=== PATIENT | male | born 1960 | race Caucasian/White ===

== ENCOUNTER 2016-11-14 13:25 | Inpatient (IN) | payer OTHER ==
[~2016-11-14] VITALS: Ht 175.3 cm; Wt 78.1 kg
[~2016-11-14 13:25] MED LIST: UNABLE
[2016-11-14 13:29] VITALS: Ht 175.3 cm; Wt 78.1 kg
[2016-11-14 14:48] LABS: BASO % 0.1 %; BASO ABS # 0.02 K/uL (0-0.2); COMPLETE YES; EOS % 0.3 %; HEMATOCRIT 45.1 % (42-52); IG% 0.3 %; LYMPH % 5.4 %; LYMPH ABS # 0.99 K/uL (1.2-3.4); MEAN CELL VOLUME 87.7 fL (80-100); MEAN CORPUSCULAR HEMOGLOBIN 31.1 pg (25-34); MEAN CORPUSCULAR HGB CONC 35.5 g/dl (32-36); MEAN PLATELET VOLUME 9.6 fL (7.4-10.4); NEUT % 83.9 %; PLATELET COUNT 269 K/uL (130-400); RED BLOOD COUNT 5.14 M/uL (4.7-6.1); WHITE BLOOD COUNT 18.19 K/uL (4.8-10.8)
[2016-11-14 15:08] LABS: ALB/GLOB RATIO 0.9 (0.9-2); BUN/CREATININE RATIO 15.2 (10-20); CALCIUM 8.8 mg/dl (8.5-10.1); POTASSIUM 3.8 mmol/L (3.5-5.1)
--- NOTE | 2016-11-14 15:13 | DIAGNOSTIC IMAGING REPORT ---
CHEST ONE VIEW PORTABLE CLINICAL HISTORY: weakness dyspnea COMPARISON STUDY: No previous studies for comparison. FINDINGS: The bones soft tissues and hemidiaphragms are normal. The cardiomediastinal silhouette is normal. The lungs are clear. The pulmonary vasculature is normal. IMPRESSION: Negative chest. Electronically signed by: Eduardo Lucio M.D. 11/14/2016 3:12 PM Dictated Date/Time: 11/14/2016 3:11 PM
[2016-11-14 15:16] LABS: THYROID STIMULATING HORMONE 1.48 uIu/ml (0.300-4.500)
--- NOTE | 2016-11-14 15:24 | DIAGNOSTIC IMAGING REPORT ---
CT OF THE CERVICAL SPINE CLINICAL HISTORY: Neck pain status post trauma COMPARISON STUDY: No previous studies for comparison. CT DOSE: TECHNIQUE: CT scan of the cervical spine was performed from the skull base to the thoracic inlet. Images are reviewed in the axial, sagittal, and coronal planes. IV contrast was not administered for this examination. FINDINGS: The visualized portions of the lung apices reveal no evidence of pneumothorax. The prevertebral soft tissues are normal. No fractures or subluxations are visualized. There are multilevel degenerative changes. There is straightening of the normal cervical lordosis. There are disc osteophyte complexes at the C4-5 and C5-6 and C6-7 levels. There is poor dentition with multiple dental caries. . IMPRESSION: No evidence of acute fracture or traumatic subluxation. Electronically signed by: Don Estrada M.D. 11/14/2016 3:23 PM Dictated Date/Time: 11/14/2016 3:21 PM
--- NOTE | 2016-11-14 15:24 | DIAGNOSTIC IMAGING REPORT ---
HEAD CT NONCONTRAST CT DOSE: 1004.92 mGy.cm HISTORY: Trauma fall, weakness TECHNIQUE: Multiaxial CT images of the head were performed without the use of intravenous contrast. Comparison: None. Findings: The paranasal sinuses and mastoid air cells are clear. The calvarium and skull base are intact. The ventricles and sulci are within normal limits. There is no mass, hematoma, midline shift, or acute infarct. Impression: No acute intracranial abnormality. Electronically signed by: Eduardo Lucio M.D. 11/14/2016 3:22 PM Dictated Date/Time: 11/14/2016 3:22 PM
[2016-11-14] MEDS ORDERED: SODIUM CHLORIDE 0.9% 1000ML 1,000 ML IV STA ×2 (15:52→20:17)
[2016-11-14 18:24] LABS: URINE APPEARANCE CLEAR (CLEAR); URINE BILIRUBIN NEG (NEG); URINE COLOR YELLOW; URINE NITRITE NEG (NEG); URINE SPECIFIC GRAVITY 1.002 (1.000-1.030); UROBILINOGEN NEG (NEG)
[2016-11-14 18:29] LABS: MANUAL MICROSCOPIC REQUIRED? NO; REVIEW REQ? NO
[2016-11-14 19:24] LABS: BENZODIAZEPINE, URINE NEG (NEG); COCAINE,URINE NEG (NEG); PHENCYCLIDINE, URINE NEG (NEG)
--- NOTE | 2016-11-14 19:24 | DIAGNOSTIC IMAGING REPORT ---
CT OF THE ABDOMEN AND PELVIS WITHOUT CONTRAST CLINICAL HISTORY: Inguinal/scrotal swelling. COMPARISON STUDY: Renal ultrasound November 07, 2009. TECHNIQUE: Axial images of the abdomen and pelvis were obtained without IV contrast. Images were reviewed in the axial, sagittal, and coronal planes. FINDINGS: Visualized portions of the lower chest demonstrate suspected right-sided gynecomastia which is suboptimally assessed by CT. There is a small hiatal hernia. Evaluation of the abdomen and pelvis is suboptimal on this unenhanced exam. Unenhanced images of the liver, spleen, adrenal glands, kidneys and pancreas are unremarkable. There calcite lesions within the spleen and pancreas. There is no hydronephrosis. There are small fat-containing ventral hernias. There is colonic diverticulosis without evidence for acute diverticulitis. A large amount stool is noted within the rectum. There is no evidence for a bowel obstruction. There is no lymphadenopathy. Note is made of a large water attenuation scrotal ovoid abnormality that measures 13 x 6 x 8 cm. No suspicious skeletal abnormalities are present. IMPRESSION: 1. Large water attenuation scrotal abnormality that measures approximately 13 x 6 x 8 cm. This is suboptimally assessed on this unenhanced CT but may reflect a large spermatocele, hydrocele or epididymal head cyst. This can be assessed with ultrasound. 2. Large amount stool within the rectum. No bowel obstruction. Electronically signed by: Thein Kennedy M.D. 11/14/2016 7:23 PM Dictated Date/Time: 11/14/2016 7:15 PM
--- NOTE | 2016-11-14 20:08 | DIAGNOSTIC IMAGING REPORT ---
SCROTAL ULTRASOUND CLINICAL HISTORY: Scrotal swelling. COMPARISON STUDY: CT of the abdomen and pelvis performed earlier today.. TECHNIQUE: Grayscale and color and duplex Doppler sonography of the scrotum was performed. FINDINGS: Note is made of a large hypoechoic abnormality which contains debris or low level echoes within the right hemiscrotum. This corresponds to the abnormality shown on prior CT. Measurements are difficult to obtain by sonography but this measures approximately 13 cm in maximal dimension. The right testis measures 5.3 x 3.1 x 2.3 cm and the left measures 4.2 x 2.4 x 3.2 cm. There is no testicular mass. Color flow is identified within each testis. A normal right epididymis was not visualized. IMPRESSION: 1. 13 cm fluid-filled structure within the right hemiscrotum which corresponds to the abnormality on prior CT. This contains debris or low level echoes. This likely reflects a large spermatocele. An epididymal head cyst or loculated hydrocele could appear similar. 2. Unremarkable sonographic appearance of the testes. Electronically signed by: Thien Kennedy M.D. 11/14/2016 8:07 PM Dictated Date/Time: 11/14/2016 8:04 PM
--- NOTE | 2016-11-14 21:06 | EMERGENCY ROOM VISIT NOTE ---
History Report prepared by Michael: Radha Fuentes Under the Supervision of: Dr. Cheryl Hinton D.O. First contact with patient: 13:33 Chief Complaint: MENTAL HEALTH EVALUATION Stated Complaint: MR History of Present Illness The patient is a 56 year old male who presents to the Emergency Room with complaints of persistent mental health issues starting 1 week ago. The patient was released from retirement 1 week ago. The patient's father reports that the patient has been in and out of retirement most of his life. He is a chronic drug abuser. He has a history of depression and a family history of mental health issues in his mother. He has tried to intentionally overdose several times. He has a history of hepatitis C. Recently the patient has been withdrawn. He is not like himself according to his father. He answers questions, but does not converse. He has bowel movement and urinates in his clothes. He does not make an effort to take care of himself. He mostly lies on the couch and goes to bed to sleep. He had a psychiatric evaluated this morning and was referred to the ED. He has not ever harmed others, only himself. He was on medications previously, but is not on any medications anymore. The father is unsure which medications he was on. The patient reports he is feeling OK. He has been shaking for the past few days. He has never experienced this shaking before and is unsure why he is shaking. He denies any chills or feeling nervous. He did not shake prior to being released from retirement. He fell at home after tripping on something 3 days ago. He denies hitting his head. He states that he cannot shower or take care of himself because he is too weak. He is able to walk and denies any unsteadiness when he walks. He denies any recent illnesses. He denies any abdominal pain, chest pain, headaches, swelling in the abdomen or legs, SOB, nausea, diarrhea, urinary symptoms, cough, or fever. He has been eating and drinking normally. He has not had any alcohol in 5 years. He denies any drug use. He has a history of hypertension, but is not on any medications currently. Source of History: patient, parent Onset: 1 week ago Position: other Quality: other (mental health issue) Timing: other (persistent) Associated Symptoms: + weakness, No SOB, No abdominal pain, No chest pain, No cough, No diarrhea, No fevers, No headache, No nausea, No urinary symptoms Note: Pt reports shakiness. Pt denies swelling in abdomen or legs. Review of Systems See HPI for pertinent positives & negatives. A total of 10 systems reviewed and were otherwise negative. Past Medical & Surgical Medical Problems: (1) Altered mental status (2) Asthma (3) Hypertension Family History FH: mental illness Social History Smoking Status: Never Smoker Marital Status: Housing Status: lives with family Occupation Status: unemployed Current/Historical Medications No Active Prescriptions or Reported Meds Allergies Coded Allergies: No Known Allergies (Verified , 11/14/16) Physical Exam Vital Signs Date Time Temp Pulse Resp B/P Pulse Ox O2 Delivery O2 Flow Rate FiO2 11/14/16 21:51 78 11/14/16 21:00 84 18 136/71 99 Room Air 11/14/16 19:00 81 16 98 Room Air 11/14/16 16:58 93 18 128/78 99 Room Air 11/14/16 14:57 89 11/14/16 14:49 89 14 105/58 98 11/14/16 13:29 36.4 72 18 158/94 95 Room Air Physical Exam GENERAL: alert, well appearing, well nourished, no distress, non-toxic EYE EXAM: normal conjunctiva, PERRL and EOM's grossly intact OROPHARYNX: no exudate, no erythema, lips, buccal mucosa, and tongue normal and mucous membranes are moist NECK: supple, no nuchal rigidity, no adenopathy, non-tender LUNGS: Clear to auscultation. Normal chest wall mechanics HEART: no murmurs, S1 normal and S2 normal ABDOMEN: abdomen soft, non-tender, normo-active bowel sounds, no masses, no rebound or guarding. BACK: Back is symmetrical on inspection and there is no deformity, no midline tenderness, no CVA tenderness. : Scrotum is enlarged. Nontender. No signs of cellulitis or Julián's. SKIN: no rashes and no bruising UPPER EXTREMITIES: upper extremities are grossly normal. LOWER EXTREMITIES: No pitting edema. NEURO EXAM: Normal sensorium, cranial nerves II-XII intact, normal speech, no weakness of arms, no weakness of legs. No drift. Finger to nose intact. Gross sensation intact. Fine tremor. Medical Decision & Procedures ER Provider Diagnostic Interpretation: Xray results per the radiologist and my interpretation. Other results have been interpreted by the radiologist and reviewed by me. CHEST ONE VIEW PORTABLE CLINICAL HISTORY: weakness dyspnea COMPARISON STUDY: No previous studies for comparison. FINDINGS: The bones soft tissues and hemidiaphragms are normal. The cardiomediastinal silhouette is normal. The lungs are clear. The pulmonary vasculature is normal. IMPRESSION: Negative chest. Electronically signed by: Eduardo Lucio M.D. 11/14/2016 3:12 PM Dictated Date/Time: 11/14/2016 3:[address] OF THE CERVICAL SPINE CLINICAL HISTORY: Neck pain status post trauma COMPARISON STUDY: No previous studies for comparison. CT DOSE: TECHNIQUE: CT scan of the cervical spine was performed from the skull base to the thoracic inlet. Images are reviewed in the axial, sagittal, and coronal planes. IV contrast was not administered for this examination. FINDINGS: The visualized portions of the lung apices reveal no evidence of pneumothorax. The prevertebral soft tissues are normal. No fractures or subluxations are visualized. There are multilevel degenerative changes. There is straightening of the normal cervical lordosis. There are disc osteophyte complexes at the C4-5 and C5-6 and C6-7 levels. There is poor dentition with multiple dental caries. . IMPRESSION: No evidence of acute fracture or traumatic subluxation. Electronically signed by: Don Estrada M.D. 11/14/2016 3:23 PM Dictated Date/Time: 11/14/2016 3:[address] CT DOSE: 1004.92 mGy.cm HISTORY: Trauma fall, weakness TECHNIQUE: Multiaxial CT images of the head were performed without the use of intravenous contrast. Comparison: None. Findings: The paranasal sinuses and mastoid air cells are clear. The calvarium and skull base are intact. The ventricles and sulci are within normal limits. There is no mass, hematoma, midline shift, or acute infarct. Impression: No acute intracranial abnormality. Electronically signed by: Eduardo Lucio M.D. 11/14/2016 3:22 PM Dictated Date/Time: 11/14/2016 3:[address] OF THE ABDOMEN AND PELVIS WITHOUT CONTRAST CLINICAL HISTORY: Inguinal/scrotal swelling. COMPARISON STUDY: Renal ultrasound November 07, 2009. TECHNIQUE: Axial images of the abdomen and pelvis were obtained without IV contrast. Images were reviewed in the axial, sagittal, and coronal planes. FINDINGS: Visualized portions of the lower chest demonstrate suspected right-sided gynecomastia which is suboptimally assessed by CT. There is a small hiatal hernia. Evaluation of the abdomen and pelvis is suboptimal on this unenhanced exam. Unenhanced images of the liver, spleen, adrenal glands, kidneys and pancreas are unremarkable. There calcite lesions within the spleen and pancreas. There is no hydronephrosis. There are small fat-containing ventral hernias. There is colonic diverticulosis without evidence for acute diverticulitis. A large amount stool is noted within the rectum. There is no evidence for a bowel obstruction. There is no lymphadenopathy. Note is made of a large water attenuation scrotal ovoid abnormality that measures 13 x 6 x 8 cm. No suspicious skeletal abnormalities are present. IMPRESSION: 1. Large water attenuation scrotal abnormality that measures approximately 13 x 6 x 8 cm. This is suboptimally assessed on this unenhanced CT but may reflect a large spermatocele, hydrocele or epididymal head cyst. This can be assessed with ultrasound. 2. Large amount stool within the rectum. No bowel obstruction. Electronically signed by: Thien Kennedy M.D. 11/14/2016 7:23 PM Dictated Date/Time: 11/14/2016 7:15 PM SCROTAL ULTRASOUND CLINICAL HISTORY: Scrotal swelling. COMPARISON STUDY: CT of the abdomen and pelvis performed earlier today.. TECHNIQUE: Grayscale and color and duplex Doppler sonography of the scrotum was performed. FINDINGS: Note is made of a large hypoechoic abnormality which contains debris or low level echoes within the right hemiscrotum. This corresponds to the abnormality shown on prior CT. Measurements are difficult to obtain by sonography but this measures approximately 13 cm in maximal dimension. The right testis measures 5.3 x 3.1 x 2.3 cm and the left measures 4.2 x 2.4 x 3.2 cm. There is no testicular mass. Color flow is identified within each testis. A normal right epididymis was not visualized. IMPRESSION: 1. 13 cm fluid-filled structure within the right hemiscrotum which corresponds to the abnormality on prior CT. This contains debris or low level echoes. This likely reflects a large spermatocele. An epididymal head cyst or loculated hydrocele could appear similar. 2. Unremarkable sonographic appearance of the testes. Electronically signed by: Thien Kennedy M.D. 11/14/2016 8:07 PM Dictated Date/Time: 11/14/2016 8:04 PM Laboratory Results 11/14/16 20:42 11/14/16 14:25 Test 11/14/16 14:25 11/14/16 14:45 11/14/16 18:00 11/14/16 20:42 Immature Granulocyte % (Auto) 0.3 % White Blood Count 18.19 K/uL (4.8-10.8) Red Blood Count 5.14 M/uL (4.7-6.1) 4.65 M/uL (4.7-6.1) Hemoglobin 16.0 g/dL (14.0-18.0) Hematocrit 45.1 % (42-52) Mean Corpuscular Volume 87.7 fL (80-100) 89.2 fL (80-100) Mean Corpuscular Hemoglobin 31.1 pg (25-34) 31.8 pg (25-34) Mean Corpuscular Hemoglobin Concent 35.5 g/dl (32-36) 35.7 g/dl (32-36) Platelet Count 269 K/uL (130-400) Mean Platelet Volume 9.6 fL (7.4-10.4) 9.9 fL (7.4-10.4) Neutrophils (%) (Auto) 83.9 % Lymphocytes (%) (Auto) 5.4 % Monocytes (%) (Auto) 10.0 % Eosinophils (%) (Auto) 0.3 % Basophils (%) (Auto) 0.1 % Neutrophils # (Auto) 15.25 K/uL (1.4-6.5) Lymphocytes # (Auto) 0.99 K/uL (1.2-3.4) Monocytes # (Auto) 1.81 K/uL (0.11-0.59) Eosinophils # (Auto) 0.06 K/uL (0-0.5) Basophils # (Auto) 0.02 K/uL (0-0.2) Immature Granulocyte # (Auto) 0.06 K/uL (0.00-0.02) Anion Gap 10.0 mmol/L (3-11) Est Creatinine Clear Calc Drug Dose 81.5 ml/min Estimated GFR () 96.4 Estimated GFR (Non- 83.2 BUN/Creatinine Ratio 15.2 (10-20) Calcium Level 8.8 mg/dl (8.5-10.1) Total Bilirubin 0.6 mg/dl (0.2-1) Aspartate Amino Transf (AST/SGOT) 14 U/L (15-37) Alanine Aminotransferase (ALT/SGPT) 25 U/L (12-78) Alkaline Phosphatase 96 U/L (45-117) Ammonia 13.0 umol/L (11-32) Total Creatine Kinase 84 U/L (39-308) Total Protein 6.8 gm/dl (6.4-8.2) Albumin 3.3 gm/dl (3.4-5.0) Globulin 3.5 gm/dl (2.5-4.0) Albumin/Globulin Ratio 0.9 (0.9-2) Lipase 102 U/L (73-393) Thyroid Stimulating Hormone (TSH) 1.480 uIu/ml (0.300-4.500) Ethyl Alcohol mg/dL < 3.0 mg/dl (0-3) Urine Color YELLOW Urine Appearance CLEAR (CLEAR) Urine pH 6.0 (4.5-7.5) Urine Specific [place] Gap 1.002 (1.000-1.030) Urine Protein NEG (NEG) Urine Glucose (UA) NEG (NEG) Urine Ketones NEG (NEG) Urine Occult Blood NEG (NEG) Urine Nitrite NEG (NEG) Urine Bilirubin NEG (NEG) Urine Urobilinogen NEG (NEG) Urine Leukocyte Esterase NEG (NEG) Urine Opiates Screen NEG (NEG) Urine Methadone, Qualitative NEG (NEG) Urine Barbiturates NEG (NEG) Urine Phencyclidine (PCP) Level NEG (NEG) Ur Amphetamine/Methamphetamine NEG (NEG) MDMA (Ecstasy) Screen NEG (NEG) Urine Benzodiazepines Screen NEG (NEG) Urine Cocaine Metabolite NEG (NEG) Urine Marijuana (THC) NEG (NEG) RDW Standard Deviation 48.7 fL (36.4-46.3) RDW Coefficient of Variation 14.9 % (11.5-14.5) Laboratory results per my review. Medications Administered Medications (Trade) Dose Ordered Sig/Maile Route Start Time Stop Time Status Last Admin Dose Admin Sodium Chloride 1,000 ml @ 999 mls/hr Q1H1M STAT IV 11/14/16 15:52 11/14/16 16:52 DC 11/14/16 15:52 999 MLS/HR Sodium Chloride (Nss 1000ml) 1,000 ml @ 999 mls/hr Q1H1M STAT IV 11/14/16 20:17 11/14/16 21:17 DC 11/14/16 20:17 999 MLS/HR ECG Indication: weakness Rate (beats per minute): 95 Rhythm: normal sinus Findings: no acute ischemic change, other (normal axis, normal interval) ED Course 1318: The patient was evaluated in room A8. A complete history and physical exam was performed. 1552: NSS 1000 ml @ 999 mls/hr IV. 1734: I reevaluated the patient. He is resting comfortably. Further examination reveals an enlarged nontender scrotum. There are no signs of cellulitis or Julián's. 2017: NSS 1000 ml @ 999 mls/hr IV. 2034: I reevaluated the patient. His condition is unchanged. His affect is still very flat. His exam is unchanged. I updated him on the results and treatment plan. He verbalized understanding and agreement. He will be evaluated for further management. 2129: I discussed the patient's case with [place]. [place] [facility] [place] He will evaluate the patient for further management. Medical Decision Differential diagnoses: substance abuse, hepatic encephalopathy, intracranial hemorrhage, electrolyte imbalance, infection, dehydration. Unclear etiology of leukocytosis, no fever and no other focal findings for a clear infectious source. Discussed antibiotics with hospitalist and we will reevaluate decide. Spermatocele noted, likely patient will need urologic follow -up. No evidence of scrotal edema, [place], cellulitis. Patient seen and evaluated by psychiatric behavioral health case manager, does not meet criteria for inpatient psych admission. No evidence of acute drug alcohol withdrawal. No evidence of acute joint abnormality. No evidence of acute neurologic abnormality. Patient tremulous with unsteady gait, may require additional neuro imaging neurology evaluation. Consults Time Called: 2040 Consulting Physician: Dr. Combs [facility] [facility] [place] Returned Call: [phone] I reviewed the patient's case with him. He will evaluate the patient for further management. Impression Primary Impression: Leukocytosis Additional Impressions: Generalized weakness Tremor Ambulatory dysfunction Spermatocele Scribe Attestation The scribe's documentation has been prepared under my direction and personally reviewed by me in its entirety. I confirm that the note above accurately reflects all work, treatment, procedures, and medical decision making performed by me. Departure Information Dispostion Being Evaluated By Hospitalist Prescriptions No Active Prescriptions or Reported Meds Referrals No Doctor, Assigned (PCP) Patient Instructions My [facility] Health Problem Qualifiers Primary Impression: Leukocytosis Leukocytosis type: unspecified Qualified Codes: D72.829 - Elevated white blood cell count, unspecified
[2016-11-14 21:08] LABS: HEMATOCRIT 41.5 % (42-52); MEAN CELL VOLUME 89.2 fL (80-100); MEAN CORPUSCULAR HEMOGLOBIN 31.8 pg (25-34); MEAN CORPUSCULAR HGB CONC 35.7 g/dl (32-36); MEAN PLATELET VOLUME 9.9 fL (7.4-10.4); PLATELET COUNT 227 K/uL (130-400); RED BLOOD COUNT 4.65 M/uL (4.7-6.1)
[2016-11-14] MEDS ORDERED: ZOLPIDEM TARTRATE 5 MG TAB PO PRN (22:00)
[2016-11-14] MEDS ORDERED: ACETAMINOPHEN 325 MG TAB PO PRN (22:00)
[2016-11-14] MEDS ORDERED: ONDANSETRON INJ 2 MG/ML 2 ML VIAL IV PRN (22:00)
[2016-11-15 00:49] VITALS: BP 122/80; PULSE 78; TEMP 36.9; O2SAT 98
[2016-11-15] MEDS: NSS + 20MEQ KCL 1000ML 1,000 ML IV SCH ×3 (02:08→22:55)
[2016-11-15] MEDS ORDERED: CIPROFLOXACIN 400MG / 200ML D5W IV STA (02:17)
--- NOTE | 2016-11-15 02:17 | History and Physical ---
History & Physical Date & Time of Service: Nov 15, 2016 at 01:55 Chief Complaint: Ams, Generaliazed Weakness Primary Care Physician: No Doctor, Assigned History of Present Illness Source: patient, EMS The patient is a 56-year-old male who presents to the emergency department with mental health issues that began when released from nursing home about one week ago. His father reports that he's been in and out of nursing home most of his life, is a chronic drug abuser, has a history of depression and family history of mental health issues in his mother, and has intentionally tried to overdose several times. His father reports that the patient is not taking care of himself, having bowel movements and urinating in his clothing and not changing. He had a psychiatric evaluation this morning and was referred to the emergency department. He has reportedly been on unknown medications in the past but is not on any now. He has developed tremors since she's been home from nursing home. He says he is too weak to take care of himself. He has been eating and drinking normally. He is able to walk, but did reportedly have a trip and fall 3 days ago without head or other injury. He has become significantly more withdrawn over the past few days, no longer conversing with his father at home. Past Medical/Surgical History Medical Problems: (1) Asthma Status: Chronic (2) Hypertension Status: Chronic Family History FH: mental illness Social History Smoking Status: Unknown if Ever Smoked Smokeless Tobacco Use: Unknown Alcohol Use: reported heavy in the past, but denies alcohol use for 5 years now Drug Use: other (by history has had unspecified drug use in the past, but denies any recent use.) Marital Status: Housing status: lives with family Occupational Status: unemployed Multi-Drug Resistant Organisms History of MDRO: No Allergies Coded Allergies: No Known Allergies (Verified , 11/14/16) Home Medications No Active Prescriptions or Reported Meds Review of Systems The patient denies chest pain, palpitations, shortness of breath, cough, lower extremity swelling, vision change, hearing change, sore throat, fevers, chills, sweats, weight change, fatigue, nausea, vomiting, abdominal pain, pelvic pain, blood in urine or stool, dysuria, urinary frequency or urgency, lightheadedness , dizziness, headache, memory loss, rash, abnormal bruising or bleeding, imbalance, focal or generalized weakness, numbness or tingling in arms or legs, arthralgias or myalgias, back or neck pain, night sweats, or allergy symptoms. The review of systems is otherwise negative other than for that already noted above, and at least 10 systems have been reviewed. Physical Exam Vital Signs Date Time Temp Pulse Resp B/P Pulse Ox O2 Delivery O2 Flow Rate FiO2 11/15/16 00:49 36.9 78 20 122/80 98 Room Air 11/14/16 23:26 71 16 128/76 99 11/14/16 21:51 78 11/14/16 21:00 84 18 136/71 99 Room Air 11/14/16 19:00 81 16 98 Room Air 11/14/16 16:58 93 18 128/78 99 Room Air 11/14/16 14:57 89 11/14/16 14:49 89 14 105/58 98 11/14/16 13:29 36.4 72 18 158/94 95 Room Air The patient is awake, alert and oriented 3, normocephalic and atraumatic, reportedly was covered in feces and urine upon presentation in the emergency department, and was showered prior to my evaluation. He is lying in bed and in no acute distress. HEENT--PERRL, EOMI, mucous membranes and oropharynx with poor dentition. Neck--supple, no JVD or bruits, thyroid normal, trachea midline, no adenopathy. Heart--normal S1 and S2, no extra beats, no murmurs, rubs or gallops. Lungs--clear bilaterally, diminished throughout, no respiratory distress, no accessory muscle use. Abdomen--normal bowel sounds and soft, nontender and nondistended, no hernias or masses, no organomegaly. Extremities--no cyanosis, clubbing or edema. There are good distal pulses b/l. Dermatologic--normal skin turgor, normal color, warm and dry, no abnormal lymph nodes, no rash. Neurologic--cranial nerves II through XII grossly intact, motor and sensory examination normal. Rheumatologic--normal range of motion, nontender, muscles and joints. Psychiatric--flat affect. Diagnostics Laboratory Results Results Past 24 Hours Test 11/14/16 14:25 11/14/16 14:45 11/14/16 18:00 3/30/17 20:42 Range/Units White Blood Count 18.19 14.30 4.8-10.8 K/uL Red Blood Count 5.14 4.65 4.7-6.1 M/uL Hemoglobin 16.0 14.8 14.0-18.0 g/dL Hematocrit 45.1 41.5 42-52 % Mean Corpuscular Volume 87.7 89.2 80-100 fL Mean Corpuscular Hemoglobin 31.1 31.8 25-34 pg Mean Corpuscular Hemoglobin Concent 35.5 35.7 32-36 g/dl Platelet Count 269 227 130-400 K/uL Mean Platelet Volume 9.6 9.9 7.4-10.4 fL Neutrophils (%) (Auto) 83.9 % Lymphocytes (%) (Auto) 5.4 % Monocytes (%) (Auto) 10.0 % Eosinophils (%) (Auto) 0.3 % Basophils (%) (Auto) 0.1 % Neutrophils # (Auto) 15.25 1.4-6.5 K/uL Lymphocytes # (Auto) 0.99 1.2-3.4 K/uL Monocytes # (Auto) 1.81 0.11-0.59 K/uL Eosinophils # (Auto) 0.06 0-0.5 K/uL Basophils # (Auto) 0.02 0-0.2 K/uL RDW Standard Deviation 47.9 48.7 36.4-46.3 fL RDW Coefficient of Variation 14.9 14.9 11.5-14.5 % Immature Granulocyte % (Auto) 0.3 % Immature Granulocyte # (Auto) 0.06 0.00-0.02 K/uL Sodium Level 140 136-145 mmol/L Potassium Level 3.8 3.5-5.1 mmol/L Chloride Level 105 98-107 mmol/L Carbon Dioxide Level 25 21-32 mmol/L Anion Gap 10.0 3-11 mmol/L Blood Urea Nitrogen 15 7-18 mg/dl Creatinine 1.00 0.60-1.40 mg/dl Est Creatinine Clear Calc Drug Dose 81.5 ml/min Estimated GFR () 96.4 Estimated GFR (Non- 83.2 BUN/Creatinine Ratio 15.2 10-20 Random Glucose 127 70-99 mg/dl Calcium Level 8.8 8.5-10.1 mg/dl Total Bilirubin 0.6 0.2-1 mg/dl Aspartate Amino Transf (AST/SGOT) 14 15-37 U/L Alanine Aminotransferase (ALT/SGPT) 25 12-78 U/L Alkaline Phosphatase 96 45-117 U/L Ammonia 13.0 11-32 umol/L Total Creatine Kinase 84 39-308 U/L Total Protein 6.8 6.4-8.2 gm/dl Albumin 3.3 3.4-5.0 gm/dl Globulin 3.5 2.5-4.0 gm/dl Albumin/Globulin Ratio 0.9 0.9-2 Lipase 102 73-393 U/L Thyroid Stimulating Hormone (TSH) 1.480 0.300-4.500 uIu/ml Ethyl Alcohol mg/dL < 3.0 0-3 mg/dl Urine Color YELLOW Urine Appearance CLEAR CLEAR Urine pH 6.0 4.5-7.5 Urine Specific [place] 1.002 1.000-1.030 Urine Protein NEG NEG Urine Glucose (UA) NEG NEG Urine Ketones NEG NEG Urine Occult Blood NEG NEG Urine Nitrite NEG NEG Urine Bilirubin NEG NEG Urine Urobilinogen NEG NEG Urine Leukocyte Esterase NEG NEG Urine Opiates Screen NEG NEG Urine Methadone, Qualitative NEG NEG Urine Barbiturates NEG NEG Urine Phencyclidine (PCP) Level NEG NEG Ur Amphetamine/Methamphetamine NEG NEG MDMA (Ecstasy) Screen NEG NEG Urine Benzodiazepines Screen NEG NEG Urine Cocaine Metabolite NEG NEG Urine Marijuana (THC) NEG NEG Microbiology Results 11/14/16 Urine Culture, Received Pending Diagnostic Radiology Patient Name: SONNY ALEX Unit Number: [id number] Dictated: 11/14/161521 Transcribed: 11/14/161521 MS Printed Date/Time: [~ rep prt dt]/[~ rep prt tm] [~ rep ct labl] - [~ rep ct ivnm] [facility] [place] [address] Dictated: 11/14/161521 Transcribed: 11/14/161521 MS Printed Date/Time: [~ rep prt dt]/[~ rep prt tm] [~ rep ct labl] - [~ rep ct ivnm] HEAD CT NONCONTRAST CT DOSE: 1004.92 mGy.cm HISTORY: Trauma fall, weakness TECHNIQUE: Multiaxial CT images of the head were performed without the use of intravenous contrast. Comparison: None. Findings: The paranasal sinuses and mastoid air cells are clear. The calvarium and skull base are intact. The ventricles and sulci are within normal limits. There is no mass, hematoma, midline shift, or acute infarct. Impression: No acute intracranial abnormality. Electronically signed by: Eduardo Lucio M.D. 11/14/2016 3:22 PM Dictated Date/Time: 11/14/2016 3:22 PM The status of this report is Signed. Draft = Not yet reviewed or approved by Radiologist. Signed = Reviewed and approved by Radiologist. <AttendingPhy></AttendingPhy> <FamilyPhy>No Doctor, Assigned</FamilyPhy> < PrimaryPhy>No Doctor, Assigned</PrimaryPhy> <UnitNumber>[id number]</UnitNumber> <VisitNumber>[id number]</VisitNumber> <PatientName>SONNY ALEX JR</ PatientName> <DateOfBirth>1960</DateOfBirth> <Location>[facility]</Location> < ServiceDate>11/14/16</ServiceDate> <MNE>ESINDI</MNE> <OrderingPhy>Pheclaudia Cheryl S DO</OrderingPhy> <OrderingPhyMNE>f rep ord dr pollard</OrderingPhyMNE> < DictatingPhyMNE>f rep dict dr pollard</DictatingPhyMNE> <CCListMNE>f rep ct efrae</ CCListMNE> <AdmittingPhyMNE>f pt admit dr pollard</AdmittingPhyMNE> <AttendingPhyMNE >f pt attend dr pollard</AttendingPhyMNE> <ConsultingPhyMNE>f pt consult dr pollard</ConsultingPhyMNE> <FamilyPhyMNE>f pt fam dr pollard</FamilyPhyMNE> <OtherPhyMNE>f pt other dr pollard</OtherPhyMNE> < PrimaryPhyMNE>f pt prim care dr pollard</PrimaryPhyMNE> <ReferringPhyMNE>f pt referring dr pollard</ReferringPhyMNE> Patient Name: SONNY ALEX JR Unit Number: [id number] Dictated: 11/14/16 1521 Transcribed: 11/14/16 152 ARG Printed Date/Time: [~ rep prt dt]/[~ rep prt tm] [~ rep ct labl] - [~ rep ct ivnm] [facility] [place] [address] Dictated: 11/14/16 1521 Transcribed: 11/14/16 152 ARG Printed Date/Time: [~ rep prt dt]/[~ rep prt tm] [~ rep ct labl] - [~ rep ct ivnm] CT OF THE CERVICAL SPINE CLINICAL HISTORY: Neck pain status post trauma COMPARISON STUDY: No previous studies for comparison. CT DOSE: TECHNIQUE: CT scan of the cervical spine was performed from the skull base to the thoracic inlet. Images are reviewed in the axial, sagittal, and coronal planes. IV contrast was not administered for this examination. FINDINGS: The visualized portions of the lung apices reveal no evidence of pneumothorax. The prevertebral soft tissues are normal. No fractures or subluxations are visualized. There are multilevel degenerative changes. There is straightening of the normal cervical lordosis. There are disc osteophyte complexes at the C4-5 and C5-6 and C6-7 levels. There is poor dentition with multiple dental caries. . IMPRESSION: No evidence of acute fracture or traumatic subluxation. Electronically signed by: Dno Estrada M.D. 11/14/2016 3:23 PM Dictated Date/Time: 11/14/2016 3:21 PM The status of this report is Signed. Draft = Not yet reviewed or approved by Radiologist. Signed = Reviewed and approved by Radiologist. <AttendingPhy></AttendingPhy> <FamilyPhy>No Doctor, Assigned</FamilyPhy> < PrimaryPhy>No Doctor, Assigned</PrimaryPhy> <UnitNumber>[id number]</UnitNumber> <VisitNumber>[id number]</VisitNumber> <PatientName>SONNY ALEX JR</ PatientName> <DateOfBirth>1960</DateOfBirth> <Location>[facility]</Location> < ServiceDate>11/14/16</ServiceDate> <MNE>ESINDI</MNE> <OrderingPhy>Pheasant, Cheryl S DO</OrderingPhy> <OrderingPhyMNE>f rep ord dr pollard</OrderingPhyMNE> < DictatingPhyMNE>f rep dict dr pollard</DictatingPhyMNE> <CCListMNE>f rep ct mne</ CCListMNE> <AdmittingPhyMNE>f pt admit dr pollard</AdmittingPhyMNE> <AttendingPhyMNE >f pt attend dr pollard</AttendingPhyMNE> <ConsultingPhyMNE>f pt consult dr pollard</ConsultingPhyMNE> <FamilyPhyMNE>f pt fam dr pollard</FamilyPhyMNE> <OtherPhyMNE>f pt other dr pollard</OtherPhyMNE> < PrimaryPhyMNE>f pt prim care dr pollard</PrimaryPhyMNE> <ReferringPhyMNE>f pt referring dr pollard</ReferringPhyMNE> Patient Name: SONNY ALEX JR Unit Number: [id number] Dictated: 11/14/161510 Transcribed: 11/14/16 151 MS Printed Date/Time: [~ rep prt dt]/[~ rep prt tm] [~ rep ct labl] - [~ rep ct ivnm] [facility] Radiology Department [place] [id number] Dictated: 11/14/161510 Transcribed: 11/14/16 151 MS Printed Date/Time: [~ rep prt dt]/[~ rep prt tm] [~ rep ct labl] - [~ rep ct ivnm] CHEST ONE VIEW PORTABLE CLINICAL HISTORY: weakness dyspnea COMPARISON STUDY: No previous studies for comparison. FINDINGS: The bones soft tissues and hemidiaphragms are normal. The cardiomediastinal silhouette is normal. The lungs are clear. The pulmonary vasculature is normal. IMPRESSION: Negative chest. Electronically signed by: Eduardo Lucio M.D. 11/14/2016 3:12 PM Dictated Date/Time: 11/14/2016 3:11 PM The status of this report is Signed. Draft = Not yet reviewed or approved by Radiologist. Signed = Reviewed and approved by Radiologist. <AttendingPhy></AttendingPhy> <FamilyPhy>No Doctor, Assigned</FamilyPhy> < PrimaryPhy>No Doctor, Assigned</PrimaryPhy> <UnitNumber>[id number]</UnitNumber> <VisitNumber>[id number]</VisitNumber> <PatientName>SONNY ALEX </ PatientName> <DateOfBirth>1960</DateOfBirth> <Location>[facility]</Location> < ServiceDate>11/14/16</ServiceDate> <MNE>ESINDI</MNE> <OrderingPhy>PheasantCheryl S DO</OrderingPhy> <OrderingPhyMNE>f rep ord dr pollard</OrderingPhyMNE> < DictatingPhyMNE>f rep dict dr pollard</DictatingPhyMNE> <CCListMNE>f rep ct mne</ CCListMNE> <AdmittingPhyMNE>f pt admit dr pollard</AdmittingPhyMNE> <AttendingPhyMNE >f pt attend dr pollard</AttendingPhyMNE> <ConsultingPhyMNE>f pt consult dr pollard</ConsultingPhyMNE> <FamilyPhyMNE>f pt fam dr pollard</FamilyPhyMNE> <OtherPhyMNE>f pt other dr pollard</OtherPhyMNE> < PrimaryPhyMNE>f pt prim care dr pollard</PrimaryPhyMNE> <ReferringPhyMNE>f pt referring dr pollard</ReferringPhyMNE> Patient Name: SONNY ALEX Unit Number: [id number] Dictated: 11/14/161914 Transcribed: 11/14/161914 SARITHA Printed Date/Time: [~ rep prt dt]/[~ rep prt tm] [~ rep ct labl] - [~ rep ct ivnm] [facility] [place] [address] Dictated: 11/14/161914 Transcribed: 11/14/161914 SARITHA Printed Date/Time: [~ rep prt dt]/[~ rep prt tm] [~ rep ct labl] - [~ rep ct ivnm] [~ rep ct add3]] CT OF THE ABDOMEN AND PELVIS WITHOUT CONTRAST CLINICAL HISTORY: Inguinal/scrotal swelling. COMPARISON STUDY: Renal ultrasound November 07, 2009. TECHNIQUE: Axial images of the abdomen and pelvis were obtained without IV contrast. Images were reviewed in the axial, sagittal, and coronal planes. FINDINGS: Visualized portions of the lower chest demonstrate suspected right-sided gynecomastia which is suboptimally assessed by CT. There is a small hiatal hernia. Evaluation of the abdomen and pelvis is suboptimal on this unenhanced exam. Unenhanced images of the liver, spleen, adrenal glands, kidneys and pancreas are unremarkable. There calcite lesions within the spleen and pancreas. There is no hydronephrosis. There are small fat-containing ventral hernias. There is colonic diverticulosis without evidence for acute diverticulitis. A large amount stool is noted within the rectum. There is no evidence for a bowel obstruction. There is no lymphadenopathy. Note is made of a large water attenuation scrotal ovoid abnormality that measures 13 x 6 x 8 cm. No suspicious skeletal abnormalities are present. IMPRESSION: 1. Large water attenuation scrotal abnormality that measures approximately 13 x 6 x 8 cm. This is suboptimally assessed on this unenhanced CT but may reflect a large spermatocele, hydrocele or epididymal head cyst. This can be assessed with ultrasound. 2. Large amount stool within the rectum. No bowel obstruction. Electronically signed by: Thien Kennedy M.D. 11/14/2016 7:23 PM Dictated Date/Time: 11/14/2016 7:15 PM The status of this report is Signed. Draft = Not yet reviewed or approved by Radiologist. Signed = Reviewed and approved by Radiologist. <AttendingPhy></AttendingPhy> <FamilyPhy>No Doctor, Assigned</FamilyPhy> < PrimaryPhy>No Doctor, Assigned</PrimaryPhy> <UnitNumber>[id number]</UnitNumber> <VisitNumber>[id number]</VisitNumber> <PatientName>SONNY ALEX</ PatientName> <DateOfBirth>1960</DateOfBirth> <Location[facility]</Location> < ServiceDate>11/14/16</ServiceDate> <MNE>ESINDI</MNE> <OrderingPhy>Mary Jane Cheryl S DO</OrderingPhy> <OrderingPhyMNE>f rep ord dr pollard</OrderingPhyMNE> < DictatingPhyMNE>f rep dict dr pollard</DictatingPhyMNE> <CCListMNE>f rep ct mne</ CCListMNE> <AdmittingPhyMNE>f pt admit dr pollard</AdmittingPhyMNE> <AttendingPhyMNE >f pt attend dr pollard</AttendingPhyMNE> <ConsultingPhyMNE>f pt consult dr pollard</ConsultingPhyMNE> <FamilyPhyMNE>f pt fam dr pollard</FamilyPhyMNE> <OtherPhyMNE>f pt other dr pollard</OtherPhyMNE> < PrimaryPhyMNE>f pt prim care dr pollard</PrimaryPhyMNE> <ReferringPhyMNE>f pt referring dr pollard</ReferringPhyMNE> Patient Name: SONNY ALEX Unit Number: [id number] Dictated: 11/14/162003 Transcribed: 11/14/162003 JA Printed Date/Time: [~ rep prt dt]/[~ rep prt tm] [~ rep ct labl] - [~ rep ct ivnm] [facility] Radiology Department [place] [id number] Dictated: 11/14/162003 Transcribed: 11/14/162003 JA Printed Date/Time: [~ rep prt dt]/[~ rep prt tm] [~ rep ct labl] - [~ rep ct ivnm] [~ rep ct add3]] SCROTAL ULTRASOUND CLINICAL HISTORY: Scrotal swelling. COMPARISON STUDY: CT of the abdomen and pelvis performed earlier today.. TECHNIQUE: Grayscale and color and duplex Doppler sonography of the scrotum was performed. FINDINGS: Note is made of a large hypoechoic abnormality which contains debris or low level echoes within the right hemiscrotum. This corresponds to the abnormality shown on prior CT. Measurements are difficult to obtain by sonography but this measures approximately 13 cm in maximal dimension. The right testis measures 5.3 x 3.1 x 2.3 cm and the left measures 4.2 x 2.4 x 3.2 cm. There is no testicular mass. Color flow is identified within each testis. A normal right epididymis was not visualized. IMPRESSION: 1. 13 cm fluid-filled structure within the right hemiscrotum which corresponds to the abnormality on prior CT. This contains debris or low level echoes. This likely reflects a large spermatocele. An epididymal head cyst or loculated hydrocele could appear similar. 2. Unremarkable sonographic appearance of the testes. Electronically signed by: Thien Kennedy M.D. 11/14/2016 8:07 PM Dictated Date/Time: 11/14/2016 8:04 PM The status of this report is Signed. Draft = Not yet reviewed or approved by Radiologist. Signed = Reviewed and approved by Radiologist. <AttendingPhy></AttendingPhy> <FamilyPhy>No Doctor, Assigned</FamilyPhy> < PrimaryPhy>No Doctor, Assigned</PrimaryPhy> <UnitNumber>[id number]</UnitNumber> <VisitNumber>[id number]</VisitNumber> <PatientName>SONNY ALEX</ PatientName> <DateOfBirth>1960</DateOfBirth> <Location>[facility]</Location> < ServiceDate>11/14/16</ServiceDate> <MNE>ESINDI</MNE> <OrderingPhy>Cheryl Hinton DO</OrderingPhy> <OrderingPhyMNE>f rep ord dr pollard</OrderingPhyMNE> < DictatingPhyMNE>f rep dict dr pollard</DictatingPhyMNE> <CCListMNE>f rep ct atul</ CCListMNE> <AdmittingPhyMNE>f pt admit dr pollard</AdmittingPhyMNE> <AttendingPhyMNE >f pt attend dr pollard</AttendingPhyMNE> <ConsultingPhyMNE>f pt consult dr pollard</ConsultingPhyMNE> <FamilyPhyMNE>f pt fam dr pollard</FamilyPhyMNE> <OtherPhyMNE>f pt other dr pollard</OtherPhyMNE> < PrimaryPhyMNE>f pt prim care dr pollard</PrimaryPhyMNE> <ReferringPhyMNE>f pt referring dr pollard</ReferringPhyMNE> EKG EKG shows normal sinus rhythm at 95 bpm, increased left atrial size, no acute ST -T changes area Impression Assessment and Plan Altered mental status/generalized weakness--the patient will be admitted to the medical floor. He will be placed on normal saline with potassium chloride 20 milliequivalents at 100 ML's per hour. He has had a negative workup for acute processes including CT of the head and cervical spine. CT of abdomen and pelvis shows fecal retention in the rectum and with testicular ultrasound has confirmed a 13 cm right spermatocele versus epididymal head cyst. He undoubtedly has some underlying form of psychiatric disease and is unable to take care of himself at home, and his father cannot take care of the majority of the patient's needs. The patient will be admitted to the hospital, will undergo psychiatric consult, and we will ask rn social work to become involved with patient, as it is clear that the patient cannot return to his present living situation. 13 cm right spermatocele versus epididymal head cyst--we'll consult urology for their opinion. Hyperglycemia --blood sugar was 127 on entrance laboratories. We'll check a hemoglobin A1c. Neutrophilic leukocytosis--may be a leukemoid reaction, there is no definite sign of infection at this time. We'll place him on Cipro 400 mg IV twice a day , in the event that the neurologic process is a form of epididymitis until assessed by urology Level of Care Med/Surg Advanced Directives Existing Advance Directive: No Existing Living Will: No Existing Power of Slumber Room Attendant: No Resuscitation Status FULL RESUSCITATION VTE Prophylaxis VTE Risk Assessment Done? Y/N: Yes Risk Level: Moderate Given or contraindicated: SCD's
[2016-11-15] MEDS: CIPROFLOXACIN / D5W 400 MG in PREMIXED IN D5W 200 ML IV SCH ×2 (02:55→17:02)
[2016-11-15 06:02] LABS: ESTIMATED AVERAGE GLUCOSE 97 mg/dl; HA1C FLAG Normal (Normal)
[2016-11-15 06:51] LABS: BASO % 0.2 %; BASO ABS # 0.02 K/uL (0-0.2); COMPLETE YES; EOS % 2.3 %; HEMATOCRIT 42.5 % (42-52); IG% 0.6 %; LYMPH % 18.5 %; LYMPH ABS # 1.67 K/uL (1.2-3.4); MEAN CELL VOLUME 89.5 fL (80-100); MEAN CORPUSCULAR HEMOGLOBIN 31.4 pg (25-34); MEAN CORPUSCULAR HGB CONC 35.1 g/dl (32-36); MEAN PLATELET VOLUME 9.5 fL (7.4-10.4); MONO % 11.4 %; PLATELET COUNT 221 K/uL (130-400); RED BLOOD COUNT 4.75 M/uL (4.7-6.1); WHITE BLOOD COUNT 9.04 K/uL (4.8-10.8)
[2016-11-15 07:08] VITALS: BP 95/61; PULSE 74; TEMP 36.8; O2SAT 98
[2016-11-15 07:25] LABS: BUN/CREATININE RATIO 11.5 (10-20); CALCIUM 8.4 mg/dl (8.5-10.1); CREATININE 0.82 mg/dl (0.60-1.40); POTASSIUM 4.1 mmol/L (3.5-5.1)
[2016-11-15 14:17] VITALS: BP 105/62; PULSE 74; O2SAT 98
[2016-11-15 14:58] VITALS: BP 103/61; PULSE 76; TEMP 36.9; O2SAT 98
[2016-11-15] MEDS ORDERED: LEVO125T5 PO (15:11)
[2016-11-15] MEDS ORDERED: TRAZ50TA35 PO (15:11)
[2016-11-15] MEDS ORDERED: LURA40TA PO (15:13)
[2016-11-15] MEDS ORDERED: DUTA0.5C PO (15:15)
[2016-11-15] MEDS ORDERED: METF-383 PO (15:16)
[2016-11-15] MEDS ORDERED: BENZ2TAB6 PO (15:18)
[2016-11-15] MEDS ORDERED: MIRT30TA2 PO (15:20)
[2016-11-15] MEDS ORDERED: ALLO300T2 PO (15:20)
[2016-11-15] MEDS ORDERED: MIRT15TA2 PO (15:20)
[2016-11-15] MEDS ORDERED: TAMS0.4C38 PO ×2 (15:22→15:30)
[2016-11-15] MEDS ORDERED: ALBU2SYP9 PO (15:29)
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
--- NOTE | 2016-11-15 16:08 | Psychiatric Progress Notes ---
Psychiatric Progress Note Date of Service Nov 15, 2016. Notes psych meds confirmed with family per liaison, ordered restart at lower doses with titration over 2 days. Latuda 40 mg today, resume 60 mg tomorrow. trazodone prn as restarting Remeron. will substitute Remeron tab as no jada tab.
[2016-11-15] MEDS ORDERED: TRAZODONE HCL 50 MG TAB PO PRN (16:15)
[2016-11-15] MEDS ORDERED: LURASIDONE HCL 40 MG TAB PO ONE (17:00)
[2016-11-15] MEDS ORDERED: NURSING VERBAL MED ORDER ONE (17:00)
[2016-11-15 17:21] LABS: PROTHROMBIN TIME (PATIENT) 10.6 SECONDS (9.0-12.0)
[2016-11-15 17:41] LABS: C-REACTIVE PROTEIN 3.48 mg/dl (0-0.29); PHOSPHORUS 3.4 mg/dl (2.5-4.9)
[2016-11-15 18:24] LABS: LYME DISEASE AB IGM NEG (NEG)
[2016-11-15 18:25] LABS: LYME DISEASE AB IGG NEG (NEG)
--- NOTE | 2016-11-15 18:47 | DIAGNOSTIC IMAGING REPORT ---
MRI OF THE BRAIN WITHOUT AND WITH IV CONTRAST CLINICAL HISTORY: Altered mental status. Flat affect. COMPARISON STUDY: Head CT dated 11/14/2016 TECHNIQUE: MRI of the brain was performed from the vertex to the skull base utilizing various T1 and T2 weighted sequences. Following the IV administration of 7 mL of Gadavist contrast, additional enhanced images were obtained. FINDINGS: Sagittal T1, axial diffusion, proton density and T2 weighted axial, coronal FLAIR, and pre and post axial T1-weighted images were acquired. These were supplemented with post gadolinium coronal T1 weighted images. No intra or extra-axial mass lesions are visualized. Axial diffusion-weighted images reveal no evidence of acute or subacute infarction. There is no evidence of ventricular dilatation. Proton density T2-weighted and FLAIR images reveal no significant intraparenchymal signal abnormalities. There are no abnormal flow voids. There is no evidence of pathologic enhancement. IMPRESSION: Normal MRI of the brain for age Electronically signed by: Don Estrada M.D. 11/15/2016 6:45 PM Dictated Date/Time: 11/15/2016 6:42 PM
[2016-11-15] MEDS ORDERED: MIRTAZAPINE TAB 15 MG TAB PO ONE (21:00)
[2016-11-16 00:41] VITALS: BP 119/78; PULSE 76; TEMP 36.9; O2SAT 98
[2016-11-16] MEDS: CIPROFLOXACIN / D5W 400 MG in PREMIXED IN D5W 200 ML IV SCH ×2 (03:40→15:59)
[2016-11-16 07:55] VITALS: BP 120/77; PULSE 67; TEMP 36.8; O2SAT 99
[2016-11-16] MEDS: LURASIDONE HCL 40 MG TAB PO SCH (08:06)
[2016-11-16] MEDS: NSS + 20MEQ KCL 1000ML 1,000 ML IV SCH (08:07)
[2016-11-16 08:18] LABS: BASO % 0.3 %; BASO ABS # 0.02 K/uL (0-0.2); COMPLETE YES; EOS % 2.7 %; HEMATOCRIT 48.9 % (42-52); IG% 0.5 %; LYMPH % 20.4 %; MEAN CELL VOLUME 90.1 fL (80-100); MEAN CORPUSCULAR HEMOGLOBIN 31.9 pg (25-34); MEAN CORPUSCULAR HGB CONC 35.4 g/dl (32-36); MEAN PLATELET VOLUME 9.8 fL (7.4-10.4); NEUT % 64.1 %; PLATELET COUNT 242 K/uL (130-400); RED BLOOD COUNT 5.43 M/uL (4.7-6.1); WHITE BLOOD COUNT 7.83 K/uL (4.8-10.8)
[2016-11-16 08:41] LABS: CALCIUM 9.3 mg/dl (8.5-10.1); CREATININE 0.9 mg/dl (0.60-1.40); MAGNESIUM 1.9 mg/dl (1.8-2.4); POTASSIUM 3.9 mmol/L (3.5-5.1)
--- NOTE | 2016-11-16 10:22 | Psychiatric Progress Notes ---
Progress Note Date of Service Nov 16, 2016. Interval History 56 yo male with a history of likely psychotic depression admit for AMS. Father was able to confirm not taking psychiatric medications since shelter release. History also of state hospital placement last summer while incarcerated (no records available). Chief Complaint "I'm fine". Subjective Restarted psych meds yesterday pm. Today there is less blank stare and less delay in response. He continues to deny SI/HI. No IQ is available but appears to have cognitive limitations at baseline. Case discussed with Dr. Ward as MRI normal. His gait and Parkinsonian type symptoms appear to be improving so suspect some degree of tremor related to dyskinesia from abrupt stop of psych meds (Latuda). Review of Systems Psych: denies symptoms other than stated above Constitutional: denied Cardiovascular: denied GI: denied Neurologic: denied Remainder of 10 body systems also reviewed and denied other than noted above. Mental Status Exam During interview pt is: cooperative Appearance: appropriately groomed Eye contact is: other (limited) Motor behavior is: no abnormal motor movements Speech: other (non spontaneous but less delay in response) Affect: blunted Mood is: other ("fine") Thought process: concrete Thought content: reality based without delusions Suicidal thought are: denied Homicidal thoughts are: denied Hallucinations: denies auditory, denies visual Cognition: language grossly intact Intelligence estimated to be: below average Insight: poor Judgement: poor Impression 56 yo male with history of depression and early exposure to trauma who reportedly had suicide attempts (by overdose?) while incarcerated who presents with med noncompliance and inability to care for self at home per father after period of psych med noncompliance. Meds resumed last pm and appears improved today. Plan denies SI/HI/cole. Is eating and now med compliant here in hospital and appears improved today suspect intellectual impairment at baseline no agitated or combative behaviors reported, would not recommend 302 at this time criteria for psych admission limited if med compliant and father (now that aware that on meds) is able to oversee, it is unlikely that past records will be available this weekend and my concern is that being on a locked unit may be triggering based on trauma described from incarceration. He verbalizes that past attempts were related to incarceration. had intake at [facility], liaison to confirm follow up appointments and assist father in safety plan Visit Code E&M Code: 25633 Data Vital Signs Last 24 Hrs: Date Time Temp Pulse Resp B/P Pulse Ox O2 Delivery O2 Flow Rate FiO2 11/16/16 07:55 36.8 67 18 120/77 99 Room Air 11/16/16 07:49 Room Air 11/16/16 00:41 36.9 76 20 119/78 98 Room Air 11/15/16 23:59 Room Air 11/15/16 20:00 Room Air 11/15/16 14:58 36.9 76 20 103/61 98 11/15/16 14:17 74 98 Meds Administered Last 24 Hrs: Meds Administered (Past 24Hrs) Medications (Trade) Dose Ordered Sig/Maile Route Start Time Stop Time Status Last Admin Dose Admin Sodium Chloride 1,000 ml @ 999 mls/hr Q1H1M STAT IV 11/14/16 15:52 11/14/16 16:52 DC 11/14/16 15:52 999 MLS/HR Sodium Chloride 1,000 ml @ 999 mls/hr Q1H1M STAT IV 11/14/16 20:17 11/14/16 21:17 DC 11/14/16 20:17 999 MLS/HR Potassium Chloride/Sodium Chloride 1,000 ml @ 100 mls/hr Q10H IV 11/15/16 02:00 12/15/16 01:59 11/16/16 08:07 100 MLS/HR Ciprofloxacin/ Dextrose/Prmx (Cipro / D5w/ Premixed D5W) 200 ml @ 100 mls/hr Q12H IV 11/15/16 03:00 11/25/16 02:59 11/16/16 03:40 100 MLS/HR Lurasidone HCl (Latuda Tab) 40 mg NOW ONCE PO 11/15/16 17:00 11/15/16 17:01 DC 11/15/16 17:05 40 MG Lurasidone HCl (Latuda Tab) 60 mg DAILY PO 11/16/16 09:00 12/16/16 08:59 11/16/16 08:06 60 MG Mirtazapine (Remeron Tab) 15 mg HS ONCE PO 11/15/16 21:00 11/15/16 21:01 DC 11/15/16 21:00 15 MG Lab Results Last 24 Hrs: Last 24 Hours Test 11/15/16 16:15 11/15/16 16:53 11/16/16 07:56 Vitamin B12 Level 290 pg/mL Folate 12.39 ng/mL Lyme Disease IgG Antibody NEG Lyme Disease IgM Antibody NEG Prothrombin Time 10.6 SECONDS Prothromb Time International Ratio 1.0 Phosphorus Level 3.4 mg/dl C-Reactive Protein 3.48 mg/dl White Blood Count 7.83 K/uL Red Blood Count 5.43 M/uL Hemoglobin 17.3 g/dL Hematocrit 48.9 % Mean Corpuscular Volume 90.1 fL Mean Corpuscular Hemoglobin 31.9 pg Mean Corpuscular Hemoglobin Concent 35.4 g/dl Platelet Count 242 K/uL Mean Platelet Volume 9.8 fL Neutrophils (%) (Auto) 64.1 % Lymphocytes (%) (Auto) 20.4 % Monocytes (%) (Auto) 12.0 % Eosinophils (%) (Auto) 2.7 % Basophils (%) (Auto) 0.3 % Neutrophils # (Auto) 5.02 K/uL Lymphocytes # (Auto) 1.60 K/uL Monocytes # (Auto) 0.94 K/uL Eosinophils # (Auto) 0.21 K/uL Basophils # (Auto) 0.02 K/uL RDW Standard Deviation 50.2 fL RDW Coefficient of Variation 15.2 % Immature Granulocyte % (Auto) 0.5 % Immature Granulocyte # (Auto) 0.04 K/uL Sodium Level 141 mmol/L Potassium Level 3.9 mmol/L Chloride Level 108 mmol/L Carbon Dioxide Level 25 mmol/L Anion Gap 8.0 mmol/L Blood Urea Nitrogen 11 mg/dl Creatinine 0.90 mg/dl Est Creatinine Clear Calc Drug Dose 90.6 ml/min Estimated GFR () 109.5 Estimated GFR (Non- 94.5 BUN/Creatinine Ratio 12.0 Random Glucose 94 mg/dl Calcium Level 9.3 mg/dl Magnesium Level 1.9 mg/dl
--- NOTE | 2016-11-16 10:28 | Neurology Consultation ---
Neurology Consultation Date of Consultation: Nov 16, 2016. Attending Physician: Manjeet Strickland D.O. Primary Care Physician: No Doctor, Assigned Reason for Consultation: Patient is a 56 year old who was asked to see the request of Dr. Strickland, for neurologic consultation regarding altered mental status and other issues. History of Present Illness Source: patient, caregiver, hospital records This patient is a poor historian and denies almost anything wrong with him. Most of the history I have obtained is gathered from talking to other individuals and from the chart. He has a significant psychiatric history with a diagnosis of depression and psychosis, multiple drug overdoses, various stays and psychiatric places, and possible mild mental retardation. For the last 5 years, he was in [facility], apparently for "terroristic threats" to his neighbors. He was seen psychiatry in the [facility] and given certain medications. He was released from [facility] 1 week ago off medication. Apparently he was acting strangely at home for several days and he was incontinent of stool and urine in his bed at times. He fell 3 days ago and has been very shaky for several days. He arrived to the emergency room at 1329 hours on November 14. Temperature 36.4, pulse 72, respiratory rate 18, blood pressure 158/94, and O2 saturation 95%. His neurologic examination was described as unremarkable. Chest x-ray was unremarkable CT scan of the head was unremarkable CT scan of the cervical spine was unremarkable. CT scan of the abdomen and pelvis plus scrotal ultrasound revealed a large spermatocele on the right Urine tox screen and urinalysis was unremarkable. Patient had an elevated white count on admission which is normalized by November 16. Chem profile was unremarkable as was liver, TSH, B-12, and Lyme antibody titers. An MRI of the brain was obtained and was unremarkable for abnormalities. The patient is seen Dr. Jes Patel, psychiatrist, who felt that the patient's usual psychiatric medications and started them yesterday. Nursing reports that since yesterday he has had less tremor and is more cooperative and calm. The patient himself denies headaches, pain, dizziness, lightheadedness, confusion, speech problems, weakness or numbness in the limbs, spine issues, incontinence, or tremor. Past Medical/Surgical History Medical Problems: (1) Ambulatory dysfunction Status: Acute (2) Generalized weakness Status: Acute (3) Leukocytosis Status: Acute (4) Tremor Status: Acute Psychosis and depression with history of multiple drug overdoses in the past. History of asthma, hypertension, and possible hepatitis C. Post-cholecystectomy Family History Mother, age 77 has a history of mental health issues. Father age 77 has no significant medical problems according to the patient. Social History Patient claims he never smoked cigarettes. He used to be a heavy alcohol use in the past but has had none in the last 5 years. He is not had any drug use in the last 5 years. 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 He has a history of being and has one 20-year-old daughter. Smoking Status: Never smoker Smokeless Tobacco Use: Unknown Alcohol Use: none (reported heavy in the past, but denies alcohol use for 5 years now) Drug Use: none, other (by history has had unspecified drug use in the past, but denies any recent use.) Marital Status: Housing Status: lives with family Occupation Status: unemployed Allergies Coded Allergies: No Known Allergies (Verified , 11/14/16) Current Inpatient Medications Current Inpatient Medications Medications (Trade) Dose Ordered Sig/Maile Route Start Time Stop Time Status Last Admin Dose Admin Acetaminophen (Tylenol Tab) 650 mg Q4H PRN PO 11/14/16 22:00 12/14/16 21:59 Ondansetron HCl 4 mg 4 mg Q6H PRN IV 11/14/16 22:00 12/14/16 21:59 Potassium Chloride/Sodium Chloride 1,000 ml @ 100 mls/hr Q10H IV 11/15/16 02:00 12/15/16 01:59 11/16/16 08:07 100 MLS/HR Ciprofloxacin/ Dextrose/Prmx (Cipro / D5w/ Premixed D5W) 200 ml @ 100 mls/hr Q12H IV 11/15/16 03:00 11/25/16 02:59 11/16/16 03:40 100 MLS/HR Trazodone HCl (Desyrel Tab) 50 mg HS PRN PO 11/15/16 16:15 12/15/16 16:14 Lurasidone HCl (Latuda Tab) 60 mg DAILY PO 11/16/16 09:00 12/16/16 08:59 11/16/16 08:06 60 MG Mirtazapine (Remeron Tab) 30 mg HS PO 11/16/16 21:00 12/16/16 20:59 Review of Systems Every question I asked the patient, he denied having this symptom. Constitutional: No fatigue, No weakness Eyes: No diplopia, No worsening of vision ENT: No hearing loss, No tinnitus Respiratory: No cough, No shortness of breath Cardiovascular: No chest pain Abdomen: No nausea, No pain Musculoskeletal: No joint pain, No muscle pain Genitourinary - Male: No dysuria, No urinary incontinence Neurologic: No balance problems, No memory loss, No numbness/tingling, No vertigo, No weakness Psychiatric: No anxiety, No depression symptoms Endocrine: No fatigue Hematologic / Lymphatic: No abnormal bleeding/bruising Integumentary: No rash Allergic / Immunologic: No hives Physical Exam Vital Signs (Past 24 Hrs): Date Time Temp Pulse Resp B/P Pulse Ox O2 Delivery O2 Flow Rate FiO2 11/16/16 07:55 36.8 67 18 120/77 99 Room Air 11/16/16 07:49 Room Air 11/16/16 00:41 36.9 76 20 119/78 98 Room Air 11/15/16 23:59 Room Air 11/15/16 20:00 Room Air 11/15/16 14:58 36.9 76 20 103/61 98 11/15/16 14:17 74 98 Patient is right-handed. The patient is awake and alert. Speech is normal without aphasia or dysarthria. Mentation and thought processes are slow and he has a masklike face. Mood is neutral and affect is flat. He is mildly disheveled in appearance is otherwise cooperative. He seems very concrete in his answers. The discs are sharp with positive venous pulsations. There are no exudates, hemorrhages, or blood vessel changes seen. Pupils are 4mm bilaterally and reactive to light. Extraocular eye muscles are intact without nystagmus. Visual acuity and visual santos seem normal grossly to confrontation. There are no deficits to sensation of the face bilaterally. Corneal reflexes are positive bilaterally. Facial strength and symmetry is normal bilaterally. Hearing seems intact grossly to voice and finger rub. Palate moves well without asymmetry. There is normal sternocleidomastoid and trapezius strength bilaterally. Tongue is midline with good strength bilaterally. Neck is with full range of motion without discomfort. There are no cervical bruits. There are no cranial or ocular bruits. Heart is without murmur. Cervical, thoracic, and lumbar spine are nontender to palpation. Gait is narrow based and has some decreased arm swing with gait. Turns are reasonable and stance is normal. With outstretched arms there is no drift. There was a very rare, intermittent resting tremor on the right. There was mild action tremor in the hands only bilaterally.. There is no ataxia with [id number] testing. There is good facility in the hands. There are no abnormal involuntary movements noted. Motor strength is 5/5 diffusely in the arms bilaterally including deltoids, biceps, brachioradialis, wrist flexors and extensors, chemistry instructor, and intrinsic hand muscles. Motor strength is 5/5 diffusely in the legs bilaterally including hip flexors, quadriceps, hamstring, gastrocnemius, tibialis anterior, tibialis posterior, and peroneii muscles bilaterally. Toe extensors are normal and there is good bulk in the extensor digitorum brevis muscle bilaterally. He has mild bradykinesia in general. He has mild right greater than left cogwheel rigidity. The limbs no spasticity, and there is no atrophy noted. Muscle bulk is normal, there is no tenderness, no myotonia noted to percussion, and no fasciculations seen. Sensory examination is intact to pin and touch throughout all four limbs. Vibratory and position sense testing is normal bilaterally as well. There is normal sensation to temperature. Reflexes are 2/4 in the biceps, triceps, brachioradialis, quadriceps, and Achilles tendons bilaterally. Toes are downgoing with plantar stimulation bilaterally. Peripheral pulses are present and of normal quality distally in all four limbs. There is no peripheral edema noted. Laboratory Results Past 24 Hours: 11/16/16 07:56 Red Blood Count 5.43, Mean Corpuscular Volume 90.1, Mean Corpuscular Hemoglobin 31.9, Mean Corpuscular Hemoglobin Concent 35.4, Mean Platelet Volume 9.8, Neutrophils (%) (Auto) 64.1, Lymphocytes (%) (Auto) 20.4, Monocytes (%) (Auto) 12.0, Eosinophils (%) (Auto) 2.7, Basophils (%) (Auto) 0.3, Neutrophils # (Auto ) 5.02, Lymphocytes # (Auto) 1.60, Monocytes # (Auto) 0.94, Eosinophils # (Auto ) 0.21, Basophils # (Auto) 0.02 11/16/16 07:56 Test 11/15/16 16:15 11/15/16 16:53 11/16/16 07:56 Vitamin B12 Level 290 pg/mL (211-911) Folate 12.39 ng/mL (>5.38) Lyme Disease IgG Antibody NEG (NEG) Lyme Disease IgM Antibody NEG (NEG) Prothrombin Time 10.6 SECONDS (9.0-12.0) Prothromb Time International Ratio 1.0 (0.9-1.1) Phosphorus Level 3.4 mg/dl (2.5-4.9) C-Reactive Protein 3.48 mg/dl (0-0.29) White Blood Count 7.83 K/uL (4.8-10.8) Red Blood Count 5.43 M/uL (4.7-6.1) Hemoglobin 17.3 g/dL (14.0-18.0) Hematocrit 48.9 % (42-52) Mean Corpuscular Volume 90.1 fL (80-100) Mean Corpuscular Hemoglobin 31.9 pg (25-34) Mean Corpuscular Hemoglobin Concent 35.4 g/dl (32-36) Platelet Count 242 K/uL (130-400) Mean Platelet Volume 9.8 fL (7.4-10.4) Neutrophils (%) (Auto) 64.1 % Lymphocytes (%) (Auto) 20.4 % Monocytes (%) (Auto) 12.0 % Eosinophils (%) (Auto) 2.7 % Basophils (%) (Auto) 0.3 % Neutrophils # (Auto) 5.02 K/uL (1.4-6.5) Lymphocytes # (Auto) 1.60 K/uL (1.2-3.4) Monocytes # (Auto) 0.94 K/uL (0.11-0.59) Eosinophils # (Auto) 0.21 K/uL (0-0.5) Basophils # (Auto) 0.02 K/uL (0-0.2) RDW Standard Deviation 50.2 fL (36.4-46.3) RDW Coefficient of Variation 15.2 % (11.5-14.5) Immature Granulocyte % (Auto) 0.5 % Immature Granulocyte # (Auto) 0.04 K/uL (0.00-0.02) Anion Gap 8.0 mmol/L (3-11) Est Creatinine Clear Calc Drug Dose 90.6 ml/min Estimated GFR () 109.5 Estimated GFR (Non- 94.5 BUN/Creatinine Ratio 12.0 (10-20) Calcium Level 9.3 mg/dl (8.5-10.1) Magnesium Level 1.9 mg/dl (1.8-2.4) Imaging MRI OF THE BRAIN WITHOUT AND WITH IV CONTRAST CLINICAL HISTORY: Altered mental status. Flat affect. COMPARISON STUDY: Head CT dated 11/14/2016 TECHNIQUE: MRI of the brain was performed from the vertex to the skull base utilizing various T1 and T2 weighted sequences. Following the IV administration of 7 mL of Gadavist contrast, additional enhanced images were obtained. FINDINGS: Sagittal T1, axial diffusion, proton density and T2 weighted axial, coronal FLAIR, and pre and post axial T1-weighted images were acquired. These were supplemented with post gadolinium coronal T1 weighted images. No intra or extra-axial mass lesions are visualized. Axial diffusion-weighted images reveal no evidence of acute or subacute infarction. There is no evidence of ventricular dilatation. Proton density T2-weighted and FLAIR images reveal no significant intraparenchymal signal abnormalities. There are no abnormal flow voids. There is no evidence of pathologic enhancement. IMPRESSION: Normal MRI of the brain for age Electronically signed by: Don Estrada M.D. 11/15/2016 6:45 PM Impression 1. Tremor, altered mental status, incontinence, and somewhat bizarre behavior. I believe that this patient has psychosis and he rapidly decompensated after leaving the [facility] 1 week ago as he was not on any medication. He was probably withdrawing from medication as well. Since he restarted medication yesterday, he has made improvements. Neurologic examination today reveals some parkinsonism with bradykinesia/ masklike face, mild rigidity and mild tremor. 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 I doubt this represents primary Parkinson's disease. He has no other focal neurologic signs and MRI of the brain is normal. There is no evidence to suggest seizure activity. 2. Secondary parkinsonism as described above. This is mild overall. Plan 1. I do not think this patient needs any antiparkinsonian medication at this time. He can be followed as an outpatient however. 2. I see no reason for additional neurologic testing such as EEG or LP. I spoke with Dr. Strickland and with Dr. Patel regarding the differential diagnosis and treatment options from a neurologic standpoint.. I have no further testing or treatment recommendations to make on this patient. Please contact me if I can be of further assistance on this case.
[2016-11-16] MEDS ORDERED: NURSING VERBAL MED ORDER ONE (14:30)
--- NOTE | 2016-11-16 15:28 | Progress Note ---
Subjective Date of Service: Nov 16, 2016. Subjective Pt evaluation today including: conversation w/ patient, physical exam, chart review, lab review, review of studies, review of inpatient medication list Improvement in activity and delayed response More alert and responsive at this time Problem List Medical Problems: (1) Ambulatory dysfunction Status: Acute (2) Generalized weakness Status: Acute (3) Leukocytosis Status: Acute (4) Tremor Status: Acute Review of Systems Constitutional: No chills, No fever Respiratory: No cough, No shortness of breath, No sputum, No wheezing Cardiac: No chest pain, No orthopnea Abdomen: No constipation, No diarrhea, No nausea, No pain, No vomiting Musculoskeletal: No joint pain, No muscle pain Male : No dysuria, No urinary frequency Objective Vital Signs Date Time Temp Pulse Resp B/P Pulse Ox O2 Delivery O2 Flow Rate FiO2 11/16/16 07:55 36.8 67 18 120/77 99 Room Air 11/16/16 07:49 Room Air 11/16/16 00:41 36.9 76 20 119/78 98 Room Air 11/15/16 23:59 Room Air 11/15/16 20:00 Room Air Physical Exam General Appearance: WD/WN, no apparent distress Neck: supple, no adenopathy Respiratory/Chest: lungs clear, normal breath sounds Cardiovascular: no edema, no gallop Abdomen: non tender, soft Neurologic/Psychiatric: alert, normal mood/affect Laboratory Results Last 24 Hours Test 11/15/16 16:15 11/15/16 16:53 11/16/16 07:56 Vitamin B12 Level 290 pg/mL Folate 12.39 ng/mL Lyme Disease IgG Antibody NEG Lyme Disease IgM Antibody NEG Prothrombin Time 10.6 SECONDS Prothromb Time International Ratio 1.0 Phosphorus Level 3.4 mg/dl C-Reactive Protein 3.48 mg/dl White Blood Count 7.83 K/uL Red Blood Count 5.43 M/uL Hemoglobin 17.3 g/dL Hematocrit 48.9 % Mean Corpuscular Volume 90.1 fL Mean Corpuscular Hemoglobin 31.9 pg Mean Corpuscular Hemoglobin Concent 35.4 g/dl Platelet Count 242 K/uL Mean Platelet Volume 9.8 fL Neutrophils (%) (Auto) 64.1 % Lymphocytes (%) (Auto) 20.4 % Monocytes (%) (Auto) 12.0 % Eosinophils (%) (Auto) 2.7 % Basophils (%) (Auto) 0.3 % Neutrophils # (Auto) 5.02 K/uL Lymphocytes # (Auto) 1.60 K/uL Monocytes # (Auto) 0.94 K/uL Eosinophils # (Auto) 0.21 K/uL Basophils # (Auto) 0.02 K/uL RDW Standard Deviation 50.2 fL RDW Coefficient of Variation 15.2 % Immature Granulocyte % (Auto) 0.5 % Immature Granulocyte # (Auto) 0.04 K/uL Sodium Level 141 mmol/L Potassium Level 3.9 mmol/L Chloride Level 108 mmol/L Carbon Dioxide Level 25 mmol/L Anion Gap 8.0 mmol/L Blood Urea Nitrogen 11 mg/dl Creatinine 0.90 mg/dl Est Creatinine Clear Calc Drug Dose 90.6 ml/min Estimated GFR () 109.5 Estimated GFR (Non- 94.5 BUN/Creatinine Ratio 12.0 Random Glucose 94 mg/dl Calcium Level 9.3 mg/dl Magnesium Level 1.9 mg/dl Assessment and Plan Altered mental status/generalized weakness--the patient was admitted to the medical floor. He has had a negative workup for acute processes including CT of the head and cervical spine as well as MRI brain. Neurology consulted and agreed likely degree of psychosis in addition to secondary parkinsonism. Pt improved with reimplementation of medications he has abruptly stopped over a week ago. Psych consulted for further recs, may not need inpt psych at this time. CT of abdomen and pelvis shows fecal retention in the rectum and with testicular ultrasound has confirmed a 13 cm right spermatocele versus epididymal head cyst. He undoubtedly has some underlying form of psychiatric disease and is unable to take care of himself at home, and his father cannot take care of the majority of the patient's needs. Urology consulted Hyperglycemia -- Resolved, A1C 5.0 Neutrophilic leukocytosis--may be a leukemoid reaction, there is no definite sign of infection at this time. We'll place him on Cipro 400 mg IV twice a day , in the event that the neurologic process is a form of epididymitis until assessed by urology
[2016-11-16 16:04] VITALS: BP 89/50; PULSE 71; TEMP 37; O2SAT 96
[2016-11-16 17:00] VITALS: BP 112/70
[2016-11-16] MEDS: MIRTAZAPINE TAB 15 MG TAB PO SCH (22:02)
[2016-11-17 00:19] VITALS: BP 131/75; PULSE 69; TEMP 37; O2SAT 96
[2016-11-17] MEDS: CIPROFLOXACIN / D5W 400 MG in PREMIXED IN D5W 200 ML IV SCH ×2 (03:11→15:16)
[2016-11-17 07:30] VITALS: BP 154/78; PULSE 72; TEMP 36.7; O2SAT 99
[2016-11-17 07:51] LABS: BASO % 0.4 %; BASO ABS # 0.03 K/uL (0-0.2); COMPLETE YES; EOS % 2.4 %; HEMATOCRIT 45.7 % (42-52); IG% 0.7 %; LYMPH % 18.5 %; LYMPH ABS # 1.57 K/uL (1.2-3.4); MEAN CELL VOLUME 88.2 fL (80-100); MEAN CORPUSCULAR HEMOGLOBIN 30.5 pg (25-34); MEAN CORPUSCULAR HGB CONC 34.6 g/dl (32-36); MEAN PLATELET VOLUME 9.3 fL (7.4-10.4); MONO % 9.4 %; NEUT % 68.6 %; PLATELET COUNT 261 K/uL (130-400); RED BLOOD COUNT 5.18 M/uL (4.7-6.1); WHITE BLOOD COUNT 8.48 K/uL (4.8-10.8)
[2016-11-17] MEDS: LURASIDONE HCL 40 MG TAB PO SCH (07:53)
[2016-11-17 08:21] LABS: BUN/CREATININE RATIO 16.1 (10-20); CALCIUM 8.9 mg/dl (8.5-10.1); CREATININE 0.92 mg/dl (0.60-1.40); MAGNESIUM 1.9 mg/dl (1.8-2.4); POTASSIUM 4.2 mmol/L (3.5-5.1)
--- NOTE | 2016-11-17 13:13 | Progress Note ---
Subjective Date of Service: Nov 17, 2016. Subjective Pt evaluation today including: conversation w/ patient, physical exam, chart review, lab review, review of studies, review of inpatient medication list Resting comfortably in bed short answers alert and oriented x 3 but not aware of why he is here incontinent today denies any distress Problem List Medical Problems: (1) Ambulatory dysfunction Status: Acute (2) Generalized weakness Status: Acute (3) Leukocytosis Status: Acute (4) Tremor Status: Acute Review of Systems Constitutional: No chills, No fever Respiratory: No cough, No shortness of breath, No sputum, No wheezing Cardiac: No chest pain, No orthopnea Abdomen: No constipation, No diarrhea, No nausea, No pain Musculoskeletal: No joint pain, No muscle pain Male : No dysuria, No urinary frequency Objective Vital Signs Date Time Temp Pulse Resp B/P Pulse Ox O2 Delivery O2 Flow Rate FiO2 11/17/16 08:00 Room Air 11/17/16 07:30 36.7 72 20 154/78 99 Room Air 11/17/16 00:19 37.0 69 20 131/75 96 Room Air 11/16/16 23:59 Room Air 11/16/16 20:00 Room Air 11/16/16 17:00 112/70 11/16/16 16:04 37.0 71 20 89/50 96 11/16/16 16:00 Room Air Physical Exam General Appearance: WD/WN, no apparent distress Neck: supple, no adenopathy Respiratory/Chest: lungs clear, normal breath sounds Cardiovascular: no edema, no gallop Abdomen: non tender, soft Neurologic/Psychiatric: alert, + depressed affect Laboratory Results Last 24 Hours Test 11/17/16 07:40 White Blood Count 8.48 K/uL Red Blood Count 5.18 M/uL Hemoglobin 15.8 g/dL Hematocrit 45.7 % Mean Corpuscular Volume 88.2 fL Mean Corpuscular Hemoglobin 30.5 pg Mean Corpuscular Hemoglobin Concent 34.6 g/dl Platelet Count 261 K/uL Mean Platelet Volume 9.3 fL Neutrophils (%) (Auto) 68.6 % Lymphocytes (%) (Auto) 18.5 % Monocytes (%) (Auto) 9.4 % Eosinophils (%) (Auto) 2.4 % Basophils (%) (Auto) 0.4 % Neutrophils # (Auto) 5.82 K/uL Lymphocytes # (Auto) 1.57 K/uL Monocytes # (Auto) 0.80 K/uL Eosinophils # (Auto) 0.20 K/uL Basophils # (Auto) 0.03 K/uL RDW Standard Deviation 48.0 fL RDW Coefficient of Variation 15.0 % Immature Granulocyte % (Auto) 0.7 % Immature Granulocyte # (Auto) 0.06 K/uL Sodium Level 140 mmol/L Potassium Level 4.2 mmol/L Chloride Level 107 mmol/L Carbon Dioxide Level 25 mmol/L Anion Gap 8.0 mmol/L Blood Urea Nitrogen 15 mg/dl Creatinine 0.92 mg/dl Est Creatinine Clear Calc Drug Dose 88.6 ml/min Estimated GFR () 106.6 Estimated GFR (Non- 92.0 BUN/Creatinine Ratio 16.1 Random Glucose 106 mg/dl Calcium Level 8.9 mg/dl Magnesium Level 1.9 mg/dl Assessment and Plan Altered mental status/generalized weakness--the patient was admitted to the medical floor. He has had a negative workup for acute processes including CT of the head and cervical spine as well as MRI brain. Neurology consulted and agreed likely degree of psychosis in addition to secondary parkinsonism. Pt improved with reimplementation of medications he has abruptly stopped over a week ago. Psych consulted for further recs, may not need inpt psych at this time. CT of abdomen and pelvis shows fecal retention in the rectum and with testicular ultrasound has confirmed a 13 cm right spermatocele versus epididymal head cyst. He undoubtedly has some underlying form of psychiatric disease and is unable to take care of himself at home, and his father cannot take care of the majority of the patient's needs. Urology consulted Hyperglycemia -- Resolved, A1C 5.0 Neutrophilic leukocytosis--may be a leukemoid reaction, there is no definite sign of infection at this time. We'll place him on Cipro 400 mg IV twice a day , in the event that the neurologic process is a form of epididymitis until assessed by urology, scrotal edema noted
[2016-11-17 15:06] VITALS: BP 137/84; PULSE 82; TEMP 37.1; O2SAT 100
[2016-11-17] MEDS: MIRTAZAPINE TAB 15 MG TAB PO SCH (20:44)
[2016-11-17 23:17] VITALS: BP 120/69; PULSE 80; TEMP 37.1; O2SAT 97
[2016-11-17 23:50] VITALS: BP 110/67; PULSE 69; TEMP 36.5; O2SAT 96
--- NOTE | 2016-11-18 02:27 | GENITOURINARY CONSULTATION ---
DATE OF CONSULTATION: 11/17/2016 REASON FOR THE CONSULT: Large spermatocele, chronic incontinence. HISTORY OF PRESENTATION: The patient is a 56-year-old male who was referred to the Emergency Room because of what appeared to be mental health problems. When he arrived here, he was noted to have a slight white blood cell elevation, which seemed to resolve on antibiotics and he had a large right hemiscrotum, which on sonogram and CT appears to be fluid either a large spermatocele or a spermatocele with a hydrocele or multilocular spermatocele. The patient is unable to give any kind of history. He denies having any difficulty urinating or incontinence. He denies having any hematuria or dysuria. Apparently, he has been difficult for the nursing staff to care for and has been incontinent of urine and also of bowel. He has been a drug abuser and been in and out of retirement, apparently according to the chart. He has had some tremors and apparently he is unable to care for himself. I was asked to see patient in evaluation for the scrotal mass and incontinence and whether there is any obvious relationship to the elevated white blood cell count. Of note, patient had a negative urinalysis. His white blood cell count is currently normal, and a urine culture was negative. Please refer to the chart for review of systems, past medical history, past surgical history, and allergies. PHYSICAL EXAMINATION: GENERAL: The patient is a middle-aged male, thin, who is alert and somewhat agitated with a tremor. He is lying in bed. On examination, with smell of urine in the bed. He is having no respiratory distress. HEENT: There is no obvious HEENT abnormalities. EXTREMITIES: There is no pedal edema. ABDOMEN: Soft and benign. GENITOURINARY: He has got a normal male phallus. Left testicle is normal. Right hemiscrotum is significantly larger than the left and does sound somewhat into the external canal, but the cord appears normal above the superior end of the fluid mass that appears to transilluminate in the right hemiscrotum. There appears to be sort of a bilobar component to this with 1 lobe going up into the external canal and 1 more around the testicle, which means it is a spermatocele or hydrocele with spermatocele component coming off of it, it is difficult to be sure. There is a little bit of erythema of the scrotal skin, but this appears more to be from excoriation possibly from urine in superficial area rather than deeper more edematous erythema that would be consistent with a deeper scrotal infection. I did not do a rectal examination because of patient's psychiatric issues and his ability to seem to understand what was going on. He denies any difficulty voiding. ASSESSMENT: Right spermatocele and/or hydrocele. Certainly it does not appear to be infected, but repair could be done on an elective basis if patient complains of it as causing discomfort and because of its size that could be a possibility, but would not consider doing so until patient's mental health improves. Also, we will ask nurses to check postvoid residual with a sonogram to make sure he is emptying his bladder and we will order a PSA. I will be glad to follow patient along with you. Thank you much for this consult. JAZMIN
[2016-11-18] MEDS: CIPROFLOXACIN / D5W 400 MG in PREMIXED IN D5W 200 ML IV SCH ×2 (03:21→15:02)
[2016-11-18 08:33] VITALS: BP 131/78; PULSE 88; TEMP 37.2; O2SAT 98
[2016-11-18] MEDS: LURASIDONE HCL 40 MG TAB PO SCH (08:36)
--- NOTE | 2016-11-18 09:56 | Progress Note ---
Subjective Date of Service: Nov 18, 2016. (Zainab Lama CRNP) Subjective Pt evaluation today including: conversation w/ patient, chart review, lab review Voiding: no voiding problems 56 yo male with large hydrocele/spermatocele. The pt does not know why he was admitted this morning. Reports he has no issues with his scrotum, and does not recall seeing Dr. Ohara yesterday. UC&S noted to be negative. White count is normal. (Zainab Lama CRNP) Problem List Medical Problems: (1) Ambulatory dysfunction Status: Acute (2) Generalized weakness Status: Acute (3) Leukocytosis Status: Acute (4) Tremor Status: Acute (Zainab Lama CRNP) Review of Systems Constitutional: No chills, No fever Respiratory: No shortness of breath Cardiac: No chest pain Abdomen: No nausea, No pain, No vomiting Male : No dysuria, No hematuria Heme: No abnormal bleeding/bruising (Zainab Lama CRNP) Objective Vital Signs Date Time Temp Pulse Resp B/P Pulse Ox O2 Delivery O2 Flow Rate FiO2 11/18/16 08:33 37.2 88 16 131/78 98 Room Air 11/17/16 23:59 Room Air 11/17/16 23:50 36.5 69 18 110/67 96 Room Air 11/17/16 23:17 37.1 80 18 120/69 97 Room Air 11/17/16 20:00 Room Air 11/17/16 16:16 Room Air 11/17/16 15:06 37.1 82 20 137/84 100 Room Air (Zainab Lama CRNP) Physical Exam General Appearance: no apparent distress Eyes: normal inspection ENT: hearing grossly normal Neck: no JVD Respiratory/Chest: no respiratory distress, no accessory muscle use Cardiovascular: no JVD Extremities: normal inspection Neurologic/Psychiatric: alert, normal mood/affect, oriented x 3 Skin: normal color Comments: Enlarged scrotum with persistent hydrocele/spermatocele noted. Slightly erythematous. Some slight skin breakdown noted over the scrotum today. (Zainab Lama CRNP) Laboratory Results Last 24 Hours Test 11/17/16 15:27 Prostate Specific Antigen 0.185 ng/ml (Zainab Lama CRNP) Assessment and Plan A/P: Large right hyrocele/spermatocele AFVSS. Would tx for potentially infected spermatocele/epididymitis with 14 days of Cipro. Supportive management with skin care and scrotal support and elevation as needed. Consider spermatoceletomy as an outpatient if continues to be bothersome. Will continue to follow along with primary service at this time. (Zainab Lama, JIMMIE)
--- NOTE | 2016-11-18 10:08 | Psychiatric Progress Notes ---
Progress Note Date of Service Nov 18, 2016. Interval History 56 yo male with a history of likely psychotic depression admit for AMS. Father was able to confirm not taking psychiatric medications since [facility] release. History also of state hospital placement last summer while incarcerated (no records available). Chief Complaint "no problems". Subjective Patient was seen & assessed interval progress reviewed with liaison and Dr. Strickland. Periods of restlessness where wandering in hallway so continues on . He states primarily boredom, apparently did feel somewhat internally anxious. Currently resting comfortably in bed and only answering questions yes/ no. Reportedly father feels cannot meet his needs at home with overseeing meds and incontinence, particularly given recent ambulatory dysfunction. 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 Mental Status Exam During interview pt is: cooperative Appearance: appropriately groomed Eye contact is: fair Motor behavior is: no abnormal motor movements Speech: other (non spontaneous but less delay in response) Affect: blunted Mood is: other ("fine") Thought process: concrete Thought content: reality based without delusions Suicidal thought are: denied Homicidal thoughts are: denied Hallucinations: denies auditory, denies visual Cognition: language grossly intact Intelligence estimated to be: below average Insight: poor Judgement: poor Impression 56 yo male with history of depression and early exposure to trauma who reportedly had suicide attempts (by overdose?) while incarcerated who presents with med noncompliance and inability to care for self at home per father after period of psych med noncompliance. Meds resumed last pm and appears improved today. Plan 11/16 denies SI/HI/cole. Is eating and now med compliant here in hospital and appears improved 11/16 suspect intellectual impairment at baseline no agitated or combative behaviors reported criteria for psych admission limited if med compliant and father (now that aware that on meds) is able to oversee, it is unlikely that past records will be available this weekend and my concern is that being on a locked unit may be triggering based on trauma described from incarceration. He verbalizes that past attempts were related to incarceration. had intake at [facility], liaison to confirm follow up appointments and assist father in safety plan 11/18 continues to deny SI/HI/cole. has been pacing a bit but limited coping skills and reports boredom, that said his restart of Latuda may be causing some akathisia as goal was to get to previously effective dose as quickly as possible. Will decrease to 40 mg Latuda for tomorrow am. He doesn't appear to have any restlessness on exam this am but early in am/dose and history of tremor , Dr. Strickland approved a trial of propranolol for presumed akathisia/tremor and agrees there is no indication for acute psychiatric admission. Will start propranolol 10 mg am and evening. He will need appropriate placement once nursing care needs are fully delineated and patient currently states he would agree to whatever is needed if father is unable to meet needs at home. Will hold on additional titration of Remeron at this time and follow to address psych med doses overall to previous doses as able. He should be considered psychiatrically stable for discharge to a nursing care facility. Visit Code E&M Code: 88809 Data Vital Signs Last 24 Hrs: Date Time Temp Pulse Resp B/P Pulse Ox O2 Delivery O2 Flow Rate FiO2 11/18/16 08:33 37.2 88 16 131/78 98 Room Air 11/17/16 23:59 Room Air 11/17/16 23:50 36.5 69 18 110/67 96 Room Air 11/17/16 23:17 37.1 80 18 120/69 97 Room Air 11/17/16 20:00 Room Air 11/17/16 16:16 Room Air 11/17/16 15:06 37.1 82 20 137/84 100 Room Air Meds Administered Last 24 Hrs: Meds Administered (Past 24Hrs) Medications (Trade) Dose Ordered Sig/Maile Route Start Time Stop Time Status Last Admin Dose Admin Mirtazapine (Remeron Tab) 30 mg HS PO 11/16/16 21:00 12/16/16 20:59 11/17/16 20:44 30 MG Lab Results Last 24 Hrs: Last 24 Hours Test 11/17/16 15:27 Prostate Specific Antigen 0.185 ng/ml
--- NOTE | 2016-11-18 12:27 | Progress Note ---
Subjective Date of Service: Nov 18, 2016. Subjective Pt evaluation today including: conversation w/ patient, physical exam, chart review, lab review, review of studies, review of inpatient medication list Pt resting comfortably in bed States having too much energy and feeling bored at times No distress noted Problem List Medical Problems: (1) Ambulatory dysfunction Status: Acute (2) Generalized weakness Status: Acute (3) Leukocytosis Status: Acute (4) Tremor Status: Acute Review of Systems Constitutional: No chills, No fever Respiratory: No cough, No dyspnea on exertion, No shortness of breath, No sputum, No wheezing Cardiac: No chest pain, No orthopnea Abdomen: No constipation, No diarrhea, No nausea, No pain, No vomiting Musculoskeletal: No joint pain, No muscle pain Male : No dysuria, No urinary frequency Objective Vital Signs Date Time Temp Pulse Resp B/P Pulse Ox O2 Delivery O2 Flow Rate FiO2 11/18/16 08:33 37.2 88 16 131/78 98 Room Air 11/18/16 08:00 Room Air 11/17/16 23:59 Room Air 11/17/16 23:50 36.5 69 18 110/67 96 Room Air 11/17/16 23:17 37.1 80 18 120/69 97 Room Air 11/17/16 20:00 Room Air 11/17/16 16:16 Room Air 11/17/16 15:06 37.1 82 20 137/84 100 Room Air Physical Exam General Appearance: WD/WN, no apparent distress Neck: supple, no adenopathy Respiratory/Chest: lungs clear, normal breath sounds Cardiovascular: no edema, no gallop Abdomen: non tender, soft Neurologic/Psychiatric: alert, normal mood/affect Laboratory Results Last 24 Hours Test 11/17/16 15:27 Prostate Specific Antigen 0.185 ng/ml Assessment and Plan Altered mental status/generalized weakness--the patient was admitted to the medical floor. He has had a negative workup for acute processes including CT of the head and cervical spine as well as MRI brain. Neurology consulted and agreed likely degree of psychosis in addition to secondary parkinsonism. Pt improved with reimplementation of medications he has abruptly stopped over a week ago. Psych consulted for further recs, may not need inpt psych at this time. However due to nursing care needed and inability of father to take care of pt, would benefit from SNF. CT of abdomen and pelvis shows fecal retention in the rectum and with testicular ultrasound has confirmed a 13 cm right spermatocele versus epididymal head cyst. Urology consulted No pain, fevers noted. Recommend 14 day course of cipro. Appreciate urology recs at this time. Hyperglycemia -- Resolved, A1C 5.0 Neutrophilic leukocytosis--may be a leukemoid reaction, there is no definite sign of infection at this time. We'll place him on Cipro 400 mg IV twice a day , in the event that the neurologic process is a form of epididymitis until assessed by urology, scrotal edema noted
[2016-11-18 15:07] VITALS: BP 120/79; PULSE 77; TEMP 37.1; O2SAT 96
[2016-11-18] MEDS: PROPRANOLOL HCL 10 MG TAB PO SCH (17:00)
[2016-11-18 17:01] VITALS: BP 93/58; PULSE 73; O2SAT 96
[2016-11-18] MEDS: MIRTAZAPINE TAB 15 MG TAB PO SCH (20:19)
[2016-11-19] VITALS: O2SAT 96
[2016-11-19 00:16] VITALS: BP 145/88; PULSE 65; TEMP 36.7; O2SAT 97
[2016-11-19] MEDS: CIPROFLOXACIN / D5W 400 MG in PREMIXED IN D5W 200 ML IV SCH ×2 (04:03→15:34)
[2016-11-19 07:27] VITALS: BP 131/76; PULSE 64; TEMP 36.6; O2SAT 95
[2016-11-19] MEDS: LURASIDONE HCL 40 MG TAB PO SCH (07:54)
[2016-11-19] MEDS: PROPRANOLOL HCL 10 MG TAB PO SCH ×2 (07:54→17:46)
--- NOTE | 2016-11-19 08:20 | Progress Note ---
Subjective Date of Service: Nov 19, 2016. Subjective Pt evaluation today including: conversation w/ patient, chart review, lab review Voiding: no voiding problems 56 yo male with large right hydrocele/spermatocele. The pt denies worsening pain or scrotal swelling today. Reports he is not bothered. Denies dysuria or hematuria. Problem List Medical Problems: (1) Ambulatory dysfunction Status: Acute (2) Generalized weakness Status: Acute (3) Leukocytosis Status: Acute (4) Tremor Status: Acute Review of Systems Constitutional: No chills, No fever Respiratory: No shortness of breath Cardiac: No chest pain Abdomen: No nausea, No pain, No vomiting Male : No dysuria, No hematuria, No incontinence Heme: No abnormal bleeding/bruising Objective Vital Signs Date Time Temp Pulse Resp B/P Pulse Ox O2 Delivery O2 Flow Rate FiO2 11/19/16 07:27 36.6 64 18 131/76 95 Room Air 11/19/16 00:16 36.7 65 18 145/88 97 Room Air 11/19/16 00:00 96 Room Air 11/18/16 17:01 73 16 93/58 96 Room Air 11/18/16 16:00 Room Air 11/18/16 15:07 37.1 77 18 120/79 96 Room Air 11/18/16 08:33 37.2 88 16 131/78 98 Room Air Physical Exam General Appearance: no apparent distress Eyes: normal inspection ENT: hearing grossly normal Neck: no JVD Respiratory/Chest: no respiratory distress, no accessory muscle use Cardiovascular: no JVD Extremities: normal inspection Neurologic/Psychiatric: alert, normal mood/affect, oriented x 3 Skin: normal color Assessment and Plan A/P: Large right hyrocele/spermatocele AFVSS. Would tx for potentially infected spermatocele/epididymitis with 14 days of Cipro. Supportive management with skin care and scrotal support and elevation as needed. Consider spermatoceletomy/hydrocelectomy as an outpatient if continues to be bothersome once his mental health issues have been managed. No further management at this time. Recall PRN issues. Will arrange for outpatient f/u with Dr. Ohara in 2-3 weeks. Thanks for allowing us to participate in this pt's care.
[2016-11-19 14:59] VITALS: BP 96/61; PULSE 71; TEMP 36.9; O2SAT 96
--- NOTE | 2016-11-19 15:58 | Progress Note ---
Subjective Date of Service: Nov 19, 2016. Subjective Pt evaluation today including: conversation w/ patient, conversation w/ family , physical exam, chart review, lab review, review of studies, review of inpatient medication list flat affect yes/no answers no distress noted wanting to go home to live with dad Problem List Medical Problems: (1) Ambulatory dysfunction Status: Acute (2) Generalized weakness Status: Acute (3) Leukocytosis Status: Acute (4) Tremor Status: Acute Review of Systems Constitutional: No chills, No fever Respiratory: No cough, No shortness of breath, No sputum, No wheezing Cardiac: No chest pain, No orthopnea Abdomen: No constipation, No diarrhea, No nausea, No pain, No vomiting Musculoskeletal: No joint pain, No muscle pain Male : No dysuria, No urinary frequency Psychiatric: No anhedonism, No anxiety, No depression symptoms Objective Vital Signs Date Time Temp Pulse Resp B/P Pulse Ox O2 Delivery O2 Flow Rate FiO2 11/19/16 14:59 36.9 71 20 96/61 96 Room Air 11/19/16 08:00 Room Air 11/19/16 07:27 36.6 64 18 131/76 95 Room Air 11/19/16 00:16 36.7 65 18 145/88 97 Room Air 11/19/16 00:00 96 Room Air 11/18/16 17:01 73 16 93/58 96 Room Air 11/18/16 16:00 Room Air Physical Exam General Appearance: WD/WN, no apparent distress Neck: supple, no adenopathy Respiratory/Chest: lungs clear, normal breath sounds Cardiovascular: no edema, no gallop Abdomen: non tender, soft Neurologic/Psychiatric: alert, + depressed affect Assessment and Plan Altered mental status/generalized weakness--the patient was admitted to the medical floor. He has had a negative workup for acute processes including CT of the head and cervical spine as well as MRI brain. Neurology consulted and agreed likely degree of psychosis in addition to secondary parkinsonism. Pt improved with reimplementation of medications he has abruptly stopped over a week ago. Psych consulted for further recs, may not need inpt psych at this time. Spoke with father who is willing to take pt home. Tentative discharge in [address] of abdomen and pelvis shows fecal retention in the rectum and with testicular ultrasound has confirmed a 13 cm right spermatocele versus epididymal head cyst. Urology consulted No pain, fevers noted. Recommend 14 day course of cipro. Appreciate urology recs at this time. Hyperglycemia -- Resolved, A1C 5.0 Neutrophilic leukocytosis--may be a leukemoid reaction, there is no definite sign of infection at this time. We'll place him on Cipro 400 mg IV twice a day , in the event that the neurologic process is a form of epididymitis until assessed by urology, scrotal edema noted
[2016-11-19] MEDS: MIRTAZAPINE TAB 15 MG TAB PO SCH (21:29)
[2016-11-20 00:24] VITALS: BP 126/81; PULSE 67; TEMP 36.7; O2SAT 96
[2016-11-20 06:53] VITALS: BP 112/70; PULSE 61; TEMP 36.9; O2SAT 98
[2016-11-20] MEDS: LURASIDONE HCL 40 MG TAB PO SCH (07:57)
[2016-11-20] MEDS: PROPRANOLOL HCL 10 MG TAB PO SCH (07:58)
[2016-11-20] MEDS ORDERED: CIPROFLOXACIN 500 MG TAB PO SCH (09:00)
[2016-11-20 10:41] VITALS: BP 112/70; PULSE 61; TEMP 36.9; O2SAT 98
[2016-11-20] MEDS ORDERED: CPR500 PO (11:20)
[2016-11-20] MEDS ORDERED: LTD40 PO (11:20)
[2016-11-20] MEDS ORDERED: PROP10TA54 PO (11:20)
--- NOTE | 2016-11-20 11:25 | Discharge Instructions ---
Discharge Instructions Date of Service Nov 20, 2016. Admission Reason for Admission: Ams, Generaliazed Weakness Discharge Discharge Diagnosis / Problem: AMS, substance withdrawal, depression, Bipolar Discharge Goals Goal(s): Decrease discomfort, Improve function, Increase independence, Improve disease control, Learn about illness, Diagnostic testing, Prevent Disease Progression Activity Recommendations Activity Limitations: resume your previous activity Exercise/Sports Limitations: none Shower/Bathe: no limitations . Instructions / Follow-Up Instructions / Follow-Up Patient to be discharged home with home health Please note reduction in dose of latuda to 40 mg once daily in addition to new medications of inderal 10 mg twice a day for tremors and antibiotic cipro 500 mg twice a day for 10 more days Prescriptions sent to pharmacy Please follow up with Dr Ohara in 2 weeks and Ed confirm follow up appointments and assist father in safety plan Current Hospital Diet Patient's current hospital diet: Regular Diet Discharge Diet Recommended Diet: Regular Diet Pending Studies Studies pending at discharge: no Laboratory Results Hemoglobin A1c Test 11/14/16 20:42 Range/Units Estimated Average Glucose 97 mg/dl Hemoglobin A1c 5.0 4.5-5.6 % Medical Emergencies . Who to Call and When: Medical Emergencies: If at any time you feel your situation is an emergency, please call 911 immediately. . Non-Emergent Contact Non-Emergency issues call your: Primary Care Provider Call Non-Emergent contact if: you have a fever, your pain is worsening . . "Provider Documentation" section prepared by Manjeet Strickland. VTE Core Measure Inpt VTE Proph given/why not?: SCD's
[2016-11-20] MEDS ORDERED: METR-163 PO (13:37)
--- NOTE | 2016-11-20 14:02 | Discharge Summary ---
Discharge Summary Date of Service Nov 20, 2016. Discharge Summary Admission Date: Nov 14, 2016 at 21:56 Discharge Date: Nov 20, 2016 Discharge Disposition: Home with services Principal Diagnosis: AMS, substance withdrawal, depression, bipolar disorder Immunizations: Have You Had Influenza Vaccine: No History of Tetanus Vaccine?: Yes History of Pneumococcal: No History of Hepatitis B Vaccine: Yes Consultations: Neurology Psychiatry Medication Reconciliation New Medications: Metronidazole (Flagyl) 500 Mg Tab 500 MG PO TID for 14 Days, #42 TAB Ciprofloxacin (Ciprofloxacin HCl) 500 Mg Tab 500 MG PO BID for 10 Days, #20 TAB Lurasidone HCl (Latuda) 40 Mg Tab 40 MG PO DAILY for 30 Days, #30 TAB Propranolol HCl (Propranolol HCl) 10 Mg Tab 10 MG PO BID17 for 30 Days, #60 TAB Continued Medications: Albuterol Sulf (Ventolin) 2 Mg/5 Ml Syrp 90 MCG PO Allopurinol (Zyloprim) 300 Mg Tab 1 TAB PO DAILY for 30 Days, #30 TAB 5 Refills Benztropine Mesylate (Benztropine Mesylate) 2 Mg Tab 0.5 TAB PO HS for 30 Days, #30 TAB 2 Refills Dutasteride (Avodart) 0.5 Mg Cap 0.5 MG PO DAILY- HS, CAP Levothyroxine Sodium (Levothyroxine Sodium) 125 Mcg Tab 1 TAB PO DAILY for 30 Days, #30 TAB 5 Refills Metformin Hcl (Glucophage) 850 Mg Tab 850 MG PO BID, TAB Mirtazapine Soltab (Remeron Soltab) 30 Mg Soltab 30 MG PO HS, TAB Tamsulosin Hcl (Flomax) 0.4 Mg Cap 0.8 MG PO HS, CAP Discontinued Medications: Lurasidone Hcl (Latuda) 40 Mg Tab 60 MG PO DAILY, TAB Mirtazapine Soltab (Remeron Soltab) 15 Mg Soltab 15 MG PO HS, TAB Trazodone Hcl (Trazodone) 50 Mg Tab 50 MG PO HS, #1 TAB Discharge Exam Review of Systems: Constitutional: No chills, No fever Respiratory: No cough, No sputum Cardiovascular: No chest pain, No orthopnea Abdomen: + diarrhea, No nausea, No pain, No vomiting Musculoskeletal: No joint pain, No muscle pain Genitourinary - Male: No dysuria, No hematuria Physical Exam: General Appearance: WD/WN, no apparent distress Neck: supple, no adenopathy Respiratory/Chest: chest non-tender, normal breath sounds Cardiovascular: no edema, no gallop Abdomen / GI: non tender, soft Neurologic/Psychiatric: alert, oriented x 3, + depressed affect Hospital Course Altered mental status/generalized weakness--the patient was admitted to the medical floor. He has had a negative workup for acute processes including CT of the head and cervical spine as well as MRI brain. Neurology consulted and agreed likely degree of psychosis in addition to secondary parkinsonism. Pt improved with reimplementation of medications he has abruptly stopped over a week ago. Psych consulted for further recs, may not need inpt psych at this time. Spoke with father who is willing to take pt home. Diarrhea likely secondary to +cdiff discharged on 14 day course of flagyl three times a day CT of abdomen and pelvis shows fecal retention in the rectum and with testicular ultrasound has confirmed a 13 cm right spermatocele versus epididymal head cyst. Urology consulted No pain, fevers noted. Recommend 14 day course of cipro. Appreciate urology recs at this time. Hyperglycemia -- Resolved, A1C 5.0 Neutrophilic leukocytosis--may be a leukemoid reaction, there is no definite sign of infection at this time. We'll place him on Cipro 400 mg IV twice a day , in the event that the neurologic process is a form of epididymitis until assessed by urology, scrotal edema noted Total Time Spent: Greater than 30 minutes This includes examination of the patient, discharge planning, medication reconciliation, and communication with other providers. Discharge Instructions Please refer to the electronic Patient Visit Report (Discharge Instructions) for additional information.
[2017-01-28] MEDS ORDERED: TRAZ50TA35 PO (09:11)
[2017-01-28] MEDS ORDERED: CLON0.5T3 PO (09:11)
[2017-01-28] MEDS ORDERED: ESCI1TAB10 PO (09:11)
[2017-01-28] MEDS ORDERED: CEPH500C PO (10:52)
== END 2016-11-20 12:34 | disposition home health service (06) | DRG 57 ==
LOC: ENRESERVDT → ENRESERVTM → MERGE 13:30 → C.EDB 13:30 → C.MS2W 21:56
PROVIDERS: ADMIT Hospitalist; ATTEND Hospitalist
DX: G21.9 Secondary parkinsonism, unspecified (principal); F19.230 Other psychoactive substance dependence with withdrawal, uncomplicated; A04.7 Enterocolitis due to Clostridium difficile; F19.259 Other psychoactive substance dependence with psychoactive substance-induced psychotic disorder, unspecified; T43.506A Underdosing of unspecified antipsychotics and neuroleptics, initial encounter; N45.1 Epididymitis; N43.40 Spermatocele of epididymis, unspecified; N43.3 Hydrocele, unspecified; J45.909 Unspecified asthma, uncomplicated; I10 Essential (primary) hypertension; R73.9 Hyperglycemia, unspecified; R32 Unspecified urinary incontinence; F31.9 Bipolar disorder, unspecified; Z91.19 Patient's noncompliance with other medical treatment and regimen; Z86.19 Personal history of other infectious and parasitic diseases; Z87.898 Personal history of other specified conditions

== ENCOUNTER → 2017-01-20 | Outpatient (CLI) | payer OTHER ==
[~2017-01-20] MED LIST changes: +ALBU2SYP9 PO; +ALLO300T2 PO; +BENZ2TAB6 PO; +CEPH500C PO; +CLON0.5T3 PO; +CPR500 PO; +DUTA0.5C PO; +ESCI1TAB10 PO; +LEVO125T5 PO; +LTD40 PO; +METF-383 PO; +MIRT30TA2 PO; +PROP10TA54 PO; +TAMS0.4C38 PO; +TRAZ50TA35 PO; -UNABLE
[2017-01-20 12:45] LABS: ESTIMATED AVERAGE GLUCOSE 117 mg/dl; HA1C FLAG Normal (Normal)
[2017-01-20 13:14] LABS: CALCIUM 8.8 mg/dl (8.5-10.1)
[2017-01-20 13:20] LABS: ALT/SGPT 22 U/L (12-78); BLOOD UREA NITROGEN 14 mg/dl (7-18); BUN/CREATININE RATIO 11.7 (10-20); CARBON DIOXIDE 22 mmol/L (21-32); CHLORIDE 105 mmol/L (98-107); CHOLESTEROL 178 mg/dl (0-200); GLUCOSE 149 mg/dl (70-99); POTASSIUM 3.7 mmol/L (3.5-5.1); SODIUM 140 mmol/L (136-145); TRIGLYCERIDES 137 mg/dl (0-150); VERY LOW DENSITY LIPOPROT CALC 27 mg/dl
[2017-01-20 13:30] LABS: ALB/GLOB RATIO 0.8 (0.9-2); ALKALINE PHOSPHATASE 93 U/L (45-117); AST/SGOT 12 U/L (15-37); CHOLESTEROL/HDL RATIO 3.4; HDL CHOLESTEROL 52 mg/dl; LDL CHOLESTEROL CALCULATED 99 mg/dl; PROSTATE SPECIFIC ANTIGEN 0.105 ng/ml (0.000-4.000)
== END | disposition home or self-care (01) ==
LOC: C.LABPBG 09:06
PROVIDERS: ATTEND Neuromusculoskeletal Medicine & OMM
DX: Z00.00 Encounter for general adult medical examination without abnormal findings (principal); E11.9 Type 2 diabetes mellitus without complications; N40.0 Benign prostatic hyperplasia without lower urinary tract symptoms

== ENCOUNTER → 2017-02-12 | Outpatient (CLI) | payer OTHER ==
[~2017-02-12] MED LIST changes: -BENZ2TAB6 PO; -CPR500 PO; +LEVO125T4 PO; -LEVO125T5 PO; -LTD40 PO
--- NOTE | 2017-02-12 15:41 | DIAGNOSTIC IMAGING REPORT ---
SCROTAL ULTRASOUND CLINICAL HISTORY: Hydrocele. Urinary urgency. Urgent incontinence. COMPARISON STUDY: Scrotal ultrasound and CT of the abdomen and pelvis November 14, 2016.. TECHNIQUE: Grayscale and color and duplex Doppler sonography of the scrotum was performed. FINDINGS: The right testis measures 5.6 x 2.4 x 3.4 cm and the left measures 4.4 x 2.8 x 3.4 cm. No testicular mass is present. Color flow within each testis is symmetric. A large cystic abnormality within the right hemiscrotum measures approximately 12 x 6.4 x 10 cm with an estimated volume of 400 cc. This contains low level internal echoes. This is similar to exam of November 14, 2016. This may reflect a large hydrocele or spermatocele. A normal right epididymis is not identified. There is a small left hydrocele. There is no evidence of epididymitis. There are small left epididymal cysts. IMPRESSION: 1. No change in the large cystic abnormality within the right hemiscrotum since ultrasound of November 14, 2016. This may reflect a large spermatocele or hydrocele. 2. Unremarkable sonographic appearance of the testes. Electronically signed by: Thien Kennedy M.D. 02/12/2017 3:40 PM Dictated Date/Time: 02/12/2017 3:37 PM
== END | disposition home or self-care (01) ==
LOC: C.ULTR 13:46
PROVIDERS: ATTEND Urology
DX: N43.3 Hydrocele, unspecified (principal); N39.41 Urge incontinence; R39.15 Urgency of urination

== ENCOUNTER → 2017-04-24 | Outpatient (CLI) | payer OTHER ==
[2017-04-24 17:27] LABS: BLOOD UREA NITROGEN 11 mg/dl (7-18)
== END | disposition home or self-care (01) ==
LOC: C.LABPBG 15:08
PROVIDERS: ATTEND Psychiatry & Neurology Neurology
DX: E11.9 Type 2 diabetes mellitus without complications (principal)

== ENCOUNTER → 2017-04-25 | Outpatient (CLI) | payer OTHER ==
[~2017-04-25] MED LIST changes: +GADAVIST IV PRN
--- NOTE | 2017-04-25 09:40 | DIAGNOSTIC IMAGING REPORT ---
MRI OF THE BRAIN WITHOUT AND WITH IV CONTRAST CLINICAL HISTORY: MEMORY LOSS COMPARISON STUDY: 11/15/2016 TECHNIQUE: MRI of the brain was performed from the vertex to the skull base utilizing various T1 and T2 weighted sequences. Following the IV administration of 9 mL of Gadavist contrast, additional enhanced images were obtained. FINDINGS: Sagittal T1, axial diffusion, proton density and T2 weighted axial, coronal FLAIR, and pre and post axial T1-weighted images were acquired. These were supplemented with post gadolinium coronal T1 weighted images. No intra or extra-axial mass lesions are visualized. Axial diffusion-weighted images reveal no evidence of acute or subacute infarction. There is no evidence of ventricular dilatation. Proton density T2-weighted and FLAIR images reveal no significant intraparenchymal signal abnormalities. There are no abnormal flow voids. There is no evidence of pathologic enhancement. IMPRESSION: Normal MRI of the brain for age. Electronically signed by: Don Estrada M.D. 04/25/2017 9:39 AM Dictated Date/Time: 04/25/2017 9:23 AM
== END | disposition home or self-care (01) ==
LOC: C.MRI 08:12
PROVIDERS: ATTEND Psychiatry & Neurology Neurology
DX: R41.3 Other amnesia (principal)